=== PATIENT | female | born 1960 | race Caucasian/White ===

== ENCOUNTER 2017-02-21 15:10 | Emergency (ER) | payer OTHER, SELFPAY | END 2017-02-21 16:25 | disposition left against medical advice (07) | LOC: UTC 15:14 | PROVIDERS: Emergency Provider Nurse Practitioner Family; Family Provider Emergency Medicine; PCP Nurse Practitioner Family | DX: Z53.29 Procedure and treatment not carried out because of patient's decision for other reasons (principal) ==

== ENCOUNTER → 2017-03-29 14:37 | Outpatient (CLI) | payer OTHER, SELFPAY ==
[2017-03-29 16:19] LABS: Free T4 (Free Thyroxine) 1.05 ng/dl (0.76-1.46); Thyroid Stimulating Hormone 5.28 uIU/ml (0.358-3.740)
[2017-04-01 11:01] LABS: Triiodothyronine (T3) Free 2.7 pg/mL (2.0-4.4)
== END ==
PROVIDERS: PCP Nurse Practitioner Family; Visit Provider Internal Medicine Endocrinology, Diabetes & Metabolism
DX: E05.00 Thyrotoxicosis with diffuse goiter without thyrotoxic crisis or storm (principal); E03.8 Other specified hypothyroidism; R94.6 Abnormal results of thyroid function studies
CPT/HCPCS: 36415; 84439; 84443; 84481

== ENCOUNTER → 2017-05-11 08:42 | Outpatient (CLI) | payer OTHER, SELFPAY ==
--- NOTE | 2017-05-11 08:48 | XR_ITS ---
XR DEXA axial skeleton COMPARISON: None HISTORY: Patient is postmenopausal, history of fracture as an adult TECHNIQUE: DEXA scanning lumbar spine and bilateral hips FINDINGS: The areas BMD lumbar spine L1-L4 is 0.978 g centimeters square with T score of -1.7. The total BMD left hip is 0.933 g centimeters square with a T score -0.6. The left femoral neck is 0.849 g centimeters square with a T score -1.4. There are similar values right hip. IMPRESSION: T score is in the osteopenia range lumbar spine and bilateral hips, consider follow-up study in 2 years
--- NOTE | 2017-05-11 08:48 | MM_ITS ---
MM Dig screening mamm BI w/CAD CAD Screening COMPARISON: Digital mammograms 02/24/2016 and 10/11/2014 INDICATION: There is a history of breast cancer patient's paternal grandmother and mother. TECHNIQUE: Standard CC and MLO images were obtained. R2 CAD reviewed. FINDINGS: The breasts are composed primarily of fat with minimal scattered fibroglandular densities in each breast. There is no suspicious lesion and there are no suspicious microcalcifications. There are several small nodes in both axilla. IMPRESSION: Stable low-density breast with no suspicious lesion seen recommend yearly follow-up BI-RADS Category: 1 Negative RECOMMENDED FOLLOW-UP: 1YR - 1 YEAR FOLLOW-UP (A letter has been sent to the patient regarding results of the study.)
== END ==
PROVIDERS: Family Provider Emergency Medicine; PCP Nurse Practitioner Family; Visit Provider Nurse Practitioner Family
DX: Z12.31 Encounter for screening mammogram for malignant neoplasm of breast (principal); Z13.820 Encounter for screening for osteoporosis
CPT/HCPCS: 77067; 77080

== ENCOUNTER → 2017-05-19 14:04 | Outpatient (CLI) | payer OTHER, SELFPAY ==
--- NOTE | 2017-05-19 14:10 | XR_ITS ---
XR chest 2V HISTORY: Cough and congestion ITS.REASON: BRONCHITIS ORDERING PHYSICIAN: Nathalie Soriano PATIENT AGE: 57 years COMPARISON: 01/18/2017 FINDINGS: The cardiomediastinal silhouette and pulmonary vascularity are within normal limits. There is an area of consolidation involving the left upper lobe laterally consistent with pneumonia. Infiltrate is also present in the lingula and right lung base. Chronic changes are noted right pericardial region. No obvious effusion. No acute bony anomalies. IMPRESSION: Bilateral pneumonia. Recommend follow until clear
== END ==
PROVIDERS: PCP Nurse Practitioner Family; Visit Provider Nurse Practitioner Family
DX: J40 Bronchitis, not specified as acute or chronic (principal)
CPT/HCPCS: 71046

== ENCOUNTER → 2017-09-15 11:46 | Outpatient (REF) | payer BC, SELFPAY ==
[2017-09-15 14:12] LABS: Amphetamine/Metha Screen,Urine Negative ng/mL (<1000); Barbiturates Screen,Urine Negative ng/mL (<200); Benzodiazepines Screen,Urine Negative ng/mL (<200); Cannabinoid Screen,Urine Negative ng/mL (<50); Cocaine Screen,Urine Negative ng/mL (<300); Methadone Screen,Urine Negative ng/mL (<300); Opiate Screen,Urine Negative ng/mL (<300); Phencyclidine Screen,Urine Negative ng/mL (<25)
== END ==
LOC: LAB 11:46
PROVIDERS: Visit Provider Nurse Practitioner Family
DX: Z79.899 Other long term (current) drug therapy (principal)
CPT/HCPCS: 80305

== ENCOUNTER → 2017-12-02 17:07 | Outpatient (REF) | payer BC, SELFPAY ==
[2017-12-02 17:36] LABS: Basophils # 0.1 K/mm3 (0-0.2); Basophils % 0.8 % (0.1-2.0); Eosinophils # 0.2 K/mm3 (0.0-0.4); Eosinophils % 2.8 % (0.1-12.0); Hematocrit 44.1 % (37.0-47.0); Hemoglobin 14.1 g/dL (12.2-16.2); Lymphocytes # 2.5 K/mm3 (0.7-4.5); Lymphocytes % 38.6 K/mm3 (10-50); Mean Corpuscular Hemoglobin 30.4 pg (27.0-31.2); Mean Corpuscular Volume 94.9 fl (81-99); Mean Platelet Volume 8.7 fl (7.4-10.4); Monocytes # 0.3 K/mm3 (0.1-1.0); Monocytes % 4.1 % (1.7-9.3); Neutrophils # 3.5 K/mm3 (1.8-7.8); Neutrophils % 53.7 % (37.0-80.0); Platelet Count 303 K/mm3 (142-424); Red Blood Count 4.65 M/mm3 (4.20-5.40); Red Cell Distribution Width 12.5 % (11.5-17.5); White Blood Count 6.5 K/mm3 (4.8-10.8)
[2017-12-02 18:25] LABS: Alanine Aminotransferase 36 U/L (12-78); Albumin Level 3.9 gm/dL (3.4-5.0); Albumin/Globulin Ratio 1.1 (1.1-1.8); Alkaline Phosphatase 95 U/L (46-116); Anion Gap 12.9 mEq/L (5-15); Aspartate Amino Transferase 14 U/L (15-37); Bilirubin,Total 0.3 mg/dL (0.2-1.0); Blood Urea Nitrogen 19 mg/dL (7-18); Calcium 9.2 mg/dL (8.5-10.1); Carbon Dioxide 29 mmol/L (21.0-32.0); Chloride 102 mmol/L (98-107); Cholesterol 210 mg/dL (140-200); Creatinine,Serum 0.69 mg/dL (0.55-1.02); Estimated Glomerular Filt Rate 88 ml/min (>60); GFR (African American) 106 ML/MIN (>60); Globulin 3.5 gm/dl (1.3-3.2); Glucose 154 mg/dL (74-106); HDL Cholesterol 53 mg/dL (29-89); LDL Cholesterol 132 mg/dL (0-130); Potassium 4.9 mmoL/L (3.5-5.1); Sodium 139 mmol/L (136-145); T4 (Thyroxine) 12.1 ug/dl (4.7-13.3); Thyroid Stimulating Hormone 0.39 uIU/ml (0.358-3.740); Total Protein,Serum 7.4 gm/dL (6.4-8.2); Triglycerides 126 mg/dL (30-200); VLDL Cholesterol 25 mg/dL (0-40)
[2017-12-02 19:16] LABS: Hemoglobin A1C 7.4 % (0.0-7.0)
[2017-12-05 09:27] LABS: Vitamin D 25 Hydroxy 38.8 ng/mL (30.0-100.0)
== END ==
LOC: LAB 17:07
PROVIDERS: PCP Nurse Practitioner Family; Visit Provider Nurse Practitioner Family
DX: R73.9 Hyperglycemia, unspecified (principal); Z13.21 Encounter for screening for nutritional disorder; Z13.220 Encounter for screening for lipoid disorders
CPT/HCPCS: 80053; 80061; 82652; 83036; 84436; 84443; 85025

== ENCOUNTER → 2018-01-04 08:59 | Outpatient (CLI) | payer BC, SELFPAY | PROVIDERS: PCP Emergency Medicine; Visit Provider Nurse Practitioner Family | DX: Z71.3 Dietary counseling and surveillance (principal) | CPT/HCPCS: 97802 ==

== ENCOUNTER → 2018-01-11 13:34 | Outpatient (CLI) | payer BC, SELFPAY | PROVIDERS: Visit Provider Nurse Practitioner Family | DX: J02.9 Acute pharyngitis, unspecified (principal) ==

== ENCOUNTER → 2018-06-20 16:09 | Outpatient (CLI) | payer BC, SELFPAY ==
--- NOTE | 2018-06-20 16:16 | XR_ITS ---
XR foot wt bearing LT 3V HISTORY: ITS.REASON: pain ORDERING PHYSICIAN: Janette Harrell DPM PATIENT AGE: 58 years COMPARISON: None FINDINGS: No fracture or dislocation. No lytic or blastic change. There is normal mineralization.. The joint spaces are well-preserved. No significant degenerative/arthritic changes. No erosive changes evident. There is mild pes planus IMPRESSION: Mild pes planus otherwise negative
--- NOTE | 2018-06-20 16:16 | XR_ITS ---
XR foot wt bearing RT 3V HISTORY: ITS.REASON: pain ORDERING PHYSICIAN: Janette Harrell DPM PATIENT AGE: 58 years COMPARISON: None FINDINGS: No fracture or dislocation. No lytic or blastic change. There is normal mineralization.. The joint spaces are well-preserved. No significant degenerative/arthritic changes. No erosive changes evident. There is mild pes planus IMPRESSION: Mild pes planus otherwise negative
[2018-06-20 16:59] LABS: Hemoglobin A1C 7.2 % (0.0-7.0)
[2018-06-20 17:11] LABS: Basophils # 0.1 K/mm3 (0-0.2); Basophils % 0.9 % (0.1-2.0); Eosinophils # 0.2 K/mm3 (0.0-0.4); Eosinophils % 3.1 % (0.1-12.0); Hematocrit 40.6 % (37.0-47.0); Hemoglobin 13.5 g/dL (12.2-16.2); Lymphocytes # 2.8 K/mm3 (0.7-4.5); Lymphocytes % 36.2 % (10-50); Mean Corpuscular HGB Conc 33.2 g/dL (31.8-35.4); Mean Corpuscular Hemoglobin 31.2 pg (27.0-31.2); Mean Platelet Volume 8.1 fl (7.4-10.4); Monocytes # 0.3 K/mm3 (0.1-1.0); Monocytes % 3.6 % (1.7-9.3); Neutrophils # 4.3 K/mm3 (1.8-7.8); Neutrophils % 56.3 % (37.0-80.0); Platelet Count 289 K/mm3 (142-424); Red Blood Count 4.32 M/mm3 (4.20-5.40); Red Cell Distribution Width 12.7 % (11.5-17.5); White Blood Count 7.6 K/mm3 (4.8-10.8)
[2018-06-20 18:52] LABS: Alanine Aminotransferase 27 U/L (12-78); Albumin Level 3.7 gm/dL (3.4-5.0); Albumin/Globulin Ratio 0.9 (1.1-1.8); Alkaline Phosphatase 87 U/L (46-116); Anion Gap 12.2 mEq/L (5-15); Aspartate Amino Transferase 11 U/L (15-37); Bilirubin,Total 0.2 mg/dL (0.2-1.0); Blood Urea Nitrogen 21 mg/dL (7-18); Calcium 9.2 mg/dL (8.5-10.1); Carbon Dioxide 29 mmol/L (21.0-32.0); Chloride 105 mmol/L (98-107); Estimated Glomerular Filt Rate 86 ml/min (>60); GFR (African American) 104 ML/MIN (>60); Globulin 3.9 gm/dl (1.3-3.2); Glucose 144 mg/dL (74-106); Potassium 4.2 mmoL/L (3.5-5.1); Sodium 142 mmol/L (136-145); Total Protein,Serum 7.6 gm/dL (6.4-8.2)
== END ==
PROVIDERS: Visit Provider Podiatrist
DX: E11.9 Type 2 diabetes mellitus without complications (principal); M79.673 Pain in unspecified foot
CPT/HCPCS: 36415; 73630; 80053; 83036; 85025

== ENCOUNTER → 2018-10-07 15:41 | Outpatient (CLI) | payer BC, SELFPAY ==
--- NOTE | 2018-10-07 15:47 | MM_ITS ---
PROCEDURE: MM DIG SCREENING MAMM BI W/CAD CLINICAL INDICATION: screening There is a history of breast cancer in patient's mother and sister and maternal grandmother all after menopause. COMPARISON: [facility] DIG MAMM-SCREEN AJ from 10/11/2014 [facility] DIG MAMM-SCREEN AJ W/CAD from 02/24/2016 [facility] MM Dig screening mamm BI w/CAD from 05/11/2017 TECHNIQUE: Standard CC and MLO images were obtained. R2 CAD reviewed. FINDINGS: The breasts are composed primarily of fat with minimal scattered fibroglandular densities in each breast. There are couple of scattered benign appearing microcalcifications in each breast. There is no suspicious lesion in either breast and no suspicious microcalcifications. There is stable small nodes in both axilla. IMPRESSION: Fatty breast parenchyma with no suspicious lesions seen BI-RAD Category: 2 Benign Finding(s) FOLLOW-UP: 1YR 1 Year Follow-up (A letter has been sent to the patient regarding results of the study.) Dictated by: Dr. Sekou Page MD 10/11/2018 16:[address] Seoku Page MD in [place] 10/11/2018 16:17
== END ==
PROVIDERS: PCP Emergency Medicine; Visit Provider Physician Assistant
DX: Z12.31 Encounter for screening mammogram for malignant neoplasm of breast (principal)
CPT/HCPCS: 77067

== ENCOUNTER → 2019-05-05 12:53 | Outpatient (CLI) | payer BC, SELFPAY ==
--- NOTE | 2019-05-05 | MM_ITS ---
PROCEDURE: MM DIG MAMM DX UNILAT RT CAD Digital Breast Tomosynthesis Included CLINICAL INDICATION: New onset right breast pain COMPARISON: [facility] DIG MAMM-SCREEN AJ W/CAD from 02/24/2016 [facility] MM Dig screening mamm BI w/CAD from 05/11/2017 MM DIG SCREENING MAMM BI W/CAD from 10/07/2018 US BREAST RT COMPLETE from 05/05/2019 TECHNIQUE: Standard CC and MLO images and 3D Tomosynthesis was obtained. R2 CAD reviewed. FINDINGS: There is mostly fatty replaced fibroglandular tissue. No malignant appearing mass or malignant-appearing microcalcification is evident. There is a 5 mm well-circumscribed nodule within the upper inner aspect of the right breast. This has central decreased density with peripheral partially calcified rim consistent with an oil cyst Right breast ultrasound: There is a 4 mm hypoechoic nodule in the 1 o'clock region of the right breast with some posterior acoustical shadowing and may be related to the or oil cyst noted on mammogram. No suspicious nodules evident IMPRESSION: BI-RAD Category: 2 Benign Finding(s) FOLLOW-UP: 1YR 1 Year Follow-up (A letter has been sent to the patient regarding results of the study.) Dictated by: Vinayak Valenzuela MD 05/05/2019 15:54 Electronically signed by Vinayak Valenzuela MD in [place] 05/05/2019 15:54
== END ==
PROVIDERS: PCP Nurse Practitioner Family; Visit Provider Obstetrics & Gynecology
DX: N64.4 Mastodynia (principal)
CPT/HCPCS: 76641; 77061; 77065; G0279

== ENCOUNTER → 2019-07-26 17:05 | Outpatient (CLI) | payer BC, SELFPAY ==
[2019-07-26 18:02] LABS: Basophils # 0.1 K/mm3 (0-0.2); Basophils % 0.8 % (0.1-2.0); Eosinophils # 0.2 K/mm3 (0.0-0.4); Eosinophils % 2.9 % (0.1-12.0); Hematocrit 41.7 % (37.0-47.0); Hemoglobin 14.1 g/dL (12.2-16.2); Lymphocytes % 38.3 % (10-50); Mean Corpuscular HGB Conc 33.8 g/dL (31.8-35.4); Mean Corpuscular Hemoglobin 32.7 pg (27.0-31.2); Mean Corpuscular Volume 96.6 fl (81-99); Mean Platelet Volume 9.2 fl (7.4-10.4); Monocytes # 0.3 K/mm3 (0.1-1.0); Monocytes % 3.6 % (1.7-9.3); Neutrophils # 4.2 K/mm3 (1.8-7.8); Neutrophils % 54.4 % (37.0-80.0); Platelet Count 266 K/mm3 (142-424); Red Blood Count 4.31 M/mm3 (4.20-5.40); Red Cell Distribution Width 12.9 % (11.5-17.5); White Blood Count 7.8 K/mm3 (4.8-10.8)
[2019-07-26 18:21] LABS: Alanine Aminotransferase 26 U/L (12-78); Albumin Level 4.6 g/dl (3.5-5.0); Albumin/Globulin Ratio 1.5 (1.1-1.8); Alkaline Phosphatase 94 U/L (38-126); Anion Gap 13.4 mEq/L (5-15); Aspartate Amino Transferase 35 U/L (14-36); Bilirubin,Total 0.3 mg/dl (0.2-1.3); Blood Urea Nitrogen 29 mg/dl (7-17); Calcium 9.8 mg/dl (8.4-10.2); Carbon Dioxide 29 mmol/L (22.0-30.0); Chloride 101 mmol/L (98-107); Chol/HDL Ratio 3.3 (1-3.5); Cholesterol 279 mg/dl (140-200); Estimated Glomerular Filt Rate 86 ml/min (>60); GFR (African American) 104 ML/MIN (>60); Globulin 3.1 g/dL (1.3-3.2); Glucose 172 mg/dl (74-100); HDL Cholesterol 84 mg/dl (40-60); Potassium 4.4 mmoL/L (3.5-5.1); Sodium 139 mmol/L (136-145); Total Protein,Serum 7.7 g/dl (6.3-8.2); Triglycerides 157 mg/dl (30-150); VLDL Cholesterol 31 mg/dL (0-40)
[2019-07-26 18:32] LABS: Direct LDL Cholesterol 178.45 mg/dL (100-129)
[2019-07-26 18:36] LABS: Microalbumin/Creatinine Ratio 13.2
[2019-07-26 19:15] LABS: Creatinine,Urine Random 115 mg/dL (Not Estab.)
[2019-07-26 19:57] LABS: Hemoglobin A1C 8.1 % (4.0-6.0)
== END ==
PROVIDERS: Visit Provider Nurse Practitioner Family
DX: E11.9 Type 2 diabetes mellitus without complications (principal)
CPT/HCPCS: 80053; 80061; 82043; 82570; 83036; 84436; 84443; 85025

== ENCOUNTER → 2019-10-12 10:41 | Outpatient (CLI) | payer BC, SELFPAY ==
--- NOTE | 2019-10-12 | MM_ITS ---
PROCEDURE: MM DIG MAMM DX UNILAT RT CAD Digital Breast Tomosynthesis Included CLINICAL INDICATION: Abnormality in the right breast 6 o'clock near the nipple reddened and painful COMPARISON: MG MM DIG MAMM DX UNILAT RT CAD from 05/05/2019 US US BREAST RT COMPLETE from 05/05/2019 US US BREAST RT COMPLETE from 10/12/2019 TECHNIQUE: Right mammogram performed with tomography and right breast ultrasound FINDINGS: There is average fibroglandular tissue. No malignant appearing mass or malignant-appearing microcalcification is evident. There is a vague area of increased density in the lower aspect of the right breast slightly medially corresponding to the palpable abnormality. Right breast ultrasound: There is a 10 x 4 mm nodule in the subcutaneous tissues at 6 o'clock in the right breast near the nipple corresponding to the palpable abnormality. This is decreased echogenicity centrally with I so echogenicity peripherally appearing to contain a small cortex or capsule approximately 1 mm in thickness. There is some increased blood flow to this area. In addition, there is a 3 mm hypoechoic nodule 1 o'clock with some posterior acoustical shadowing possibly due to an oil cyst not significantly changed. IMPRESSION: Palpable nodule corresponds to a complex hypoechoic nodule on ultrasound in 6 o'clock region of the right breast within the subcutaneous tissues. This is probably benign and may represent a complex sebaceous cyst or a small abscess. This could be aspirated with sonographic guidance if clinically desired. Overall not suspicious for malignancy. BI-RAD Category: 3 Probably Benign Finding Short Term Follow-up FOLLOW-UP: Clinical follow-up suggested. Nodule could be aspirated with sonographic guidance if clinically desired. (A letter has been sent to the patient regarding results of the study.) Dictated by: Vinayak Valenzuela MD 10/20/2019 15:53 Vinayak Valenzuela MD in [place] 10/20/2019 15:53
--- NOTE | 2019-10-12 10:42 | US_ITS ---
This report is currently processing and HAS NOT BEEN OFFICIALLY SIGNED BY THE PHYSICIAN - ESTIMATED TIME OF APPROVAL IS 10/20/2019 15:56. PROCEDURE: MM DIG MAMM DX UNILAT RT CAD Digital Breast Tomosynthesis Included CLINICAL INDICATION: Abnormality in the right breast 6 o'clock near the nipple reddened and painful COMPARISON: MG MM DIG MAMM DX UNILAT RT CAD from 05/05/2019 US US BREAST RT COMPLETE from 05/05/2019 US US BREAST RT COMPLETE from 10/12/2019 TECHNIQUE: Right mammogram performed with tomography and right breast ultrasound FINDINGS: There is average fibroglandular tissue. No malignant appearing mass or malignant-appearing microcalcification is evident. There is a vague area of increased density in the lower aspect of the right breast slightly medially corresponding to the palpable abnormality. Right breast ultrasound: There is a 10 x 4 mm nodule in the subcutaneous tissues at 6 o'clock in the right breast near the nipple corresponding to the palpable abnormality. This is decreased echogenicity centrally with I so echogenicity peripherally appearing to contain a small cortex or capsule approximately 1 mm in thickness. There is some increased blood flow to this area. In addition, there is a 3 mm hypoechoic nodule 1 o'clock with some posterior acoustical shadowing possibly due to an oil cyst not significantly changed. IMPRESSION: Palpable nodule corresponds to a complex hypoechoic nodule on ultrasound in 6 o'clock region of the right breast within the subcutaneous tissues. This is probably benign and may represent a complex sebaceous cyst or a small abscess. This could be aspirated with sonographic guidance if clinically desired. Overall not suspicious for malignancy. BI-RAD Category: 3 Probably Benign Finding Short Term Follow-up FOLLOW-UP: Clinical follow-up suggested. Nodule could be aspirated with sonographic guidance if clinically desired. (A letter has been sent to the patient regarding results of the study.) Dictated by: Vinayak Valenzuela MD 10/20/2019 15:53 in [place]
== END ==
PROVIDERS: PCP Nurse Practitioner Family; Visit Provider Nurse Practitioner Family
DX: N63.15 Unspecified lump in the right breast, overlapping quadrants (principal)
CPT/HCPCS: 76641; 77061; 77065; G0279

== ENCOUNTER → 2019-11-02 12:33 | Outpatient (CLI) | payer BC, SELFPAY ==
--- NOTE | 2019-11-02 12:34 | US_ITS ---
PROCEDURE: US FNA BREAST CLINICAL INDICATION: Subcutaneous nodule of the right breast at 6 o'clock the COMPARISON: US US BREAST RT COMPLETE from 10/12/2019 FINDINGS: Following obtaining informed consent and time-out procedure with sonographic guidance, a 21 gauge needle is inserted into the subcutaneous nodule at 6 o'clock. Specimen is sent for cytology as well as culture and sensitivity. No significant fluid aspirate was obtained. Cytology: Atypical squamous cells. Culture and sensitivity results not available at the time of this reading. IMPRESSION: Uneventful ultrasound-guided FNA of the right breast nodule demonstrating atypical squamous cells. Dictated by: Vinayak Valenzuela MD 11/06/2019 10:37 Vinayak Valenzuela MD in [place] 11/06/2019 10:37
== END ==
PROVIDERS: PCP Nurse Practitioner Family; Visit Provider Nurse Practitioner Family
DX: R92.8 Other abnormal and inconclusive findings on diagnostic imaging of breast (principal)
CPT/HCPCS: 19083; 76942; 87070; 87205

== ENCOUNTER → 2019-12-06 11:25 | Outpatient (CLI) | payer BC, SELFPAY ==
--- NOTE | 2019-12-06 11:42 | ECG_ITS ---
APPROVED REPORT Exam: Resting ECG HR:72 bpm ECG Measurements Heart Rate 72 AXES IN 138 P 36 QRSd 84 QRS -6 QT 416 T -13 QTc 455 Conclusion Normal sinus rhythm Nonspecific T wave abnormality Abnormal ECG Electronically signed by : Shakir Enriquez, 12/07/2019 05:35:08
[2019-12-06 12:25] LABS: Basophils # 0.1 K/mm3 (0-0.2); Eosinophils # 0.2 K/mm3 (0.0-0.4); Eosinophils % 3.1 % (0.1-12.0); Hematocrit 42.1 % (37.0-47.0); Hemoglobin 14.6 g/dL (12.2-16.2); Lymphocytes # 2.1 K/mm3 (0.7-4.5); Lymphocytes % 30.9 % (10-50); Mean Corpuscular HGB Conc 34.8 g/dL (31.8-35.4); Mean Corpuscular Hemoglobin 32.2 pg (27.0-31.2); Mean Corpuscular Volume 92.7 fl (81-99); Mean Platelet Volume 8.9 fl (7.4-10.4); Monocytes # 0.2 K/mm3 (0.1-1.0); Monocytes % 3.4 % (1.7-9.3); Neutrophils # 4.3 K/mm3 (1.8-7.8); Neutrophils % 61.7 % (37.0-80.0); Platelet Count 285 K/mm3 (142-424); Red Blood Count 4.54 M/mm3 (4.20-5.40); Red Cell Distribution Width 13.1 % (11.5-17.5)
[2019-12-06 12:55] LABS: Chloride 106 mmol/L (98-107); Potassium 4.6 mmoL/L (3.5-5.1); Sodium 139 mmol/L (136-145)
[2019-12-06 12:58] LABS: Anion Gap 12.6 mEq/L (5-15); Blood Urea Nitrogen 20 mg/dl (7-17); Calcium 9.6 mg/dl (8.4-10.2); Carbon Dioxide 25 mmol/L (22.0-30.0); Estimated Glomerular Filt Rate 86 ml/min (>60); GFR (African American) 104 ML/MIN (>60); Glucose 197 mg/dl (74-100)
[2019-12-06 13:54] LABS: Coronavirus 19 IgG Antibody Negative (Negative); Coronavirus 19 IgM Antibody Negative (Negative)
== END ==
PROVIDERS: Visit Provider Surgery
DX: Z01.818 Encounter for other preprocedural examination (principal); N63.10 Unspecified lump in the right breast, unspecified quadrant
CPT/HCPCS: 36415; 80048; 85025; 86328; 93005

== ENCOUNTER 2019-12-08 06:07 | Day surgery (SDC) | payer BC, SELFPAY ==
[2019-12-07 09:12] VITALS: BMI 42.7
[2019-12-08] VITALS (11 sets, daily range): BP systolic 118–139; BP diastolic 63–81; PULSE 71–80; RESP 13–20; TEMP 36.1–36.4; O2SAT 92–97
[2019-12-08 06:48] LABS: POC Glucose,Bedside 234 (70-110)
--- NOTE | 2019-12-08 07:43 | P.OP_ITS ---
Date of procedure: 12/08/19 Pre-op Diagnosis:: Right breast mass (likely inflamed subcutaneous cyst) Post-op Diagnosis:: Same Procedure performed:: Excision of right breast mass Surgeon:: Shaun Jesus MD MARINE ENGINEERING CONSULTANT:: Destin Sylvester Anesthesia: LMA Estimated blood loss (mL): 5 Operative findings:: Inflamed subcutaneous lesion just below the areolar margin in the 6 o'clock position Lesion excised in toto and passed off for pathologic evaluation Operative note:: After informed consent was obtained the patient was taken to the operating room and placed in the supine position. General anesthesia with laryngeal mask airway was achieved. Her right breast was prepped and draped in a sterile fashion. After infiltration with local anesthetic a curvilinear incision was made along the inferior right areolar margin. An incision just below the lesion was then completed. The lesion was excised in toto sharply with scalpel and passed off for pathologic evaluation. Electrocautery was utilized to achieve hemostasis. The deep subcutaneous tissue was reapproximated with interrupted 4- 0 Monocryl. Skin was then closed with running 4-0 Monocryl in a subcuticular manner. Dressings were applied and the patient was transferred to recovery in stable condition after removal of her laryngeal mask airway. Condition: stable Disposition: PACU Specimens:: Right breast mass Complications:: No immediate
--- NOTE | 2019-12-08 07:50 | P.PN_ITS ---
[facility] Anesthesia Checklist - Patient Identification Patient Identification: Arm Band - Structural Data Admitted From: Home Planned Operative Procedure/s: Excision Right Breast Mass Consent for Planned Operative Procedure(s) Verified: Yes Verified Documents: Surgical Consent, History and Physical - NPO Status Verified Time NPO: 00:00 - Additional verifications Anesthesia Reactions: No Hx Blood Transfusions: No Blood Transfusion Reaction: No - Airway Assessment C-Spine Mobility Assessed: Yes (mp2) TMJ Mobility Assessed: Yes Dentition: Good Dentition - Neurological Assessment Level of Consciousness: Awake, Alert - Anesthesia Plan Anesthesia Risk discussed: Yes Anesthesia Plan: Verified ASA Class: III Anesthesia Type: General [facility] History I have reviewed the patient's past medical history: Yes Medical History: Reports:: Asthma, Diabetes Mellitus Type 2, Hyperlipidemia, Hypertension Denies:: Cancer, Diabetes Mellitus Type 1, Internal Pacemaker, MRSA, Seizures *Have you ever received a pneumonia vaccine?: Yes *Have you received a flu vaccine this season?: Yes Other Medical History: Reports: Thyroid Disease. Denies: Blood Transfusion Reaction Anesthesia experience/problems:: nac Laterality Cases: Right: Breast Biopsy Other Surgeries: Yes: Tubal Ligation. No: Pacemaker Amputation: No Fractures: No - *Social History Last grade of school completed: High school graduate Smoking Status: Never smoker Tobacco Type: cigarettes Alcohol Intake: never Substance Use Type: denies use *Occupational Status:: employed Housing: house Household Members: significant other, family *Travel in the last 8 weeks: None Family Hx:: Hypertension, Diabetes, Coronary Artery Disease, Cancer
--- NOTE | 2019-12-08 07:51 | P.PN_ITS ---
[facility] [place] Anesthesia Record Part I Intake, IV Amount: 1,000 Estimated blood loss (mL): 5 Urine output (mL): 0 Blood Pressure: 136/74 SaO2: 92 Pulse Rate: 76 Respiratory Rate: 16 Temperature: 97 F Patient is:: Drowsy, Stable Stable to PACU at:: 07:45
[2019-12-08 08:00] LABS: POC Glucose,Bedside 135 (70-110)
--- NOTE | 2019-12-08 13:24 | HMH.ANESII ---
[facility] Anesthesia Record Part II Discharge Time: 08:23 Destination: Surgical Day Care (OP Surgery) PACU nurse assessment reviewed?: Yes Patient Condition:: Good Anesthesia Complications:: None Swallowing reflex intact?: Yes Cyanosis?: No Blood Pressure: 128/72 Pulse Rate: 75 Temperature: 97.6 F Mental Status: Alert & Oriented Pain level:: 0 Nausea and/or vomitting:: None Intake, IV Amount: 0
== END 2019-12-08 08:55 | disposition home or self-care (01) ==
LOC: OR 06:09
PROVIDERS: PCP Nurse Practitioner Family; Visit Provider Surgery
PROC: (CPT 19120; principal; 2019-12-08 07:30)
DX: N60.81 Other benign mammary dysplasias of right breast (principal); J45.909 Unspecified asthma, uncomplicated; E11.9 Type 2 diabetes mellitus without complications; I10 Essential (primary) hypertension; E78.5 Hyperlipidemia, unspecified; Z82.49 Family history of ischemic heart disease and other diseases of the circulatory system; Z83.3 Family history of diabetes mellitus; Z84.89 Family history of other specified conditions; Z80.9 Family history of malignant neoplasm, unspecified
CPT/HCPCS: 19120; 82962; 96374; J2405

== ENCOUNTER → 2020-03-01 14:15 | Outpatient (CLI) | payer BC, SELFPAY ==
[2020-03-01 15:06] LABS: Creatinine,Urine Random 154 mg/dL (Not Estab.)
[2020-03-01 15:08] LABS: Microalbumin/Creatinine Ratio 13.6
[2020-03-01 15:13] LABS: Basophils # 0.1 K/mm3 (0-0.2); Basophils % 1.1 % (0.1-2.0); Eosinophils # 0.2 K/mm3 (0.0-0.4); Eosinophils % 2.2 % (0.1-12.0); Hematocrit 46.1 % (37.0-47.0); Hemoglobin 15.1 g/dL (12.2-16.2); Lymphocytes # 2.4 K/mm3 (0.7-4.5); Lymphocytes % 33.8 % (10-50); Mean Corpuscular HGB Conc 32.8 g/dL (31.8-35.4); Mean Corpuscular Hemoglobin 31.5 pg (27.0-31.2); Mean Corpuscular Volume 95.9 fl (81-99); Mean Platelet Volume 9.5 fl (7.4-10.4); Monocytes # 0.2 K/mm3 (0.1-1.0); Monocytes % 3.3 % (1.7-9.3); Neutrophils # 4.3 K/mm3 (1.8-7.8); Neutrophils % 59.6 % (37.0-80.0); Platelet Count 277 K/mm3 (142-424); Red Blood Count 4.81 M/mm3 (4.20-5.40); Red Cell Distribution Width 13.4 % (11.5-17.5); White Blood Count 7.2 K/mm3 (4.8-10.8)
[2020-03-01 15:22] LABS: Alanine Aminotransferase 33 U/L (12-78); Albumin Level 4.4 g/dl (3.5-5.0); Albumin/Globulin Ratio 1.2 (1.1-1.8); Alkaline Phosphatase 84 U/L (38-126); Anion Gap 9.6 mEq/L (5-15); Aspartate Amino Transferase 30 U/L (14-36); Bilirubin,Total 0.4 mg/dl (0.2-1.3); Blood Urea Nitrogen 17 mg/dl (7-17); Carbon Dioxide 31 mmol/L (22.0-30.0); Chloride 101 mmol/L (98-107); Chol/HDL Ratio 4.9 (1-3.5); Cholesterol 297 mg/dl (140-200); Estimated Glomerular Filt Rate 102 ml/min (>60); GFR (African American) 124 ML/MIN (>60); Globulin 3.6 g/dL (1.3-3.2); Glucose 210 mg/dl (74-100); HDL Cholesterol 61 mg/dl (40-60); Potassium 4.6 mmoL/L (3.5-5.1); Sodium 137 mmol/L (136-145); Triglycerides 209 mg/dl (30-150); VLDL Cholesterol 42 mg/dL (0-40)
[2020-03-01 15:33] LABS: Direct LDL Cholesterol 221.16 mg/dL (100-129)
[2020-03-01 15:39] LABS: 25-OH Vitamin D, Total 18.2 ng/mL (30-100)
[2020-03-01 15:52] LABS: Hemoglobin A1C 8.7 % (4.0-6.0)
== END ==
PROVIDERS: Visit Provider Nurse Practitioner Family
DX: E11.9 Type 2 diabetes mellitus without complications (principal); G62.9 Polyneuropathy, unspecified; R53.83 Other fatigue; E55.9 Vitamin D deficiency, unspecified; Z79.84 Long term (current) use of oral hypoglycemic drugs; R39.15 Urgency of urination
CPT/HCPCS: 80053; 80061; 82043; 82306; 82570; 83036; 84436; 84443; 85025; 87086

== ENCOUNTER → 2020-03-20 14:30 | Outpatient (CLI) | payer BC, SELFPAY | PROVIDERS: PCP Nurse Practitioner Family; Visit Provider Nurse Practitioner Family | DX: Z20.822 Contact with and (suspected) exposure to COVID-19 (principal) | CPT/HCPCS: U0003 ==

== ENCOUNTER → 2020-05-30 11:40 | Outpatient (CLI) | payer BC, SELFPAY ==
[2020-05-30 13:27] LABS: Coronavirus 19 IgG Antibody Negative (Negative); Coronavirus 19 IgM Antibody Negative (Negative)
== END ==
PROVIDERS: Visit Provider Internal Medicine Gastroenterology
DX: Z01.812 Encounter for preprocedural laboratory examination (principal); Z20.822 Contact with and (suspected) exposure to COVID-19; Z12.11 Encounter for screening for malignant neoplasm of colon
CPT/HCPCS: 36415; 86328

== ENCOUNTER 2020-05-31 09:59 | Day surgery (SDC) | payer BC, SELFPAY ==
[2020-05-23 13:45] VITALS: BMI 42.7
[2020-05-31 10:40] VITALS: BP 146/105; PULSE 67; RESP 18; TEMP 36.3; O2SAT 96
[2020-05-31 10:53] LABS: POC Glucose,Bedside 145 (70-110)
--- NOTE | 2020-05-31 11:06 | HMH.ANESCL ---
[facility] Anesthesia Checklist - Patient Identification Patient Identification: Arm Band - Structural Data Admitted From: Home Planned Operative Procedure/s: Colonoscopy Consent for Planned Operative Procedure(s) Verified: Yes - NPO Status Verified Time NPO: 00:00 - Additional verifications Anesthesia Reactions: No Hx Blood Transfusions: No Blood Transfusion Reaction: No - Airway Assessment Dentition: Good Dentition - Neurological Assessment Level of Consciousness: Awake, Alert Hx Seizures: No Numbness or tingling in extremities: No - Anesthesia Plan Anesthesia Risk discussed: Yes Anesthesia Plan: Verified ASA Class: III Anesthesia Type: MAC [facility] History I have reviewed the patient's past medical history: Yes Medical History: Reports:: Asthma, Chronic Obstructive Pulmonary Disease (COPD), Diabetes Mellitus Type 2 (graves), Hyperlipidemia, Hypertension Denies:: Cancer, Diabetes Mellitus Type 1, Internal Pacemaker, MRSA, Seizures *Have you ever received a pneumonia vaccine?: Yes *Have you received a flu vaccine this season?: Yes Other Medical History: Reports: Thyroid Disease. Denies: Blood Transfusion Reaction Anesthesia experience/problems:: None Laterality Cases: Right: Breast Biopsy Other Surgeries: Yes: Colonoscopy, Tubal Ligation, Other. No: Pacemaker Amputation: No Fractures: No - *Social History Last grade of school completed: High school graduate Smoking Status: Never smoker Tobacco Type: cigarettes Alcohol Intake: never Substance Use Type: denies use *Occupational Status:: employed Housing: house Household Members: spouse *Travel in the last 8 weeks: None Family Hx:: Cancer, Heart Attack
--- NOTE | 2020-05-31 11:54 | HMH.PROC ---
[facility] Procedure Note Procedure Note:: Colonoscopy Procedure Report: Colonoscopy with cold snare polypectomy and cold biopsies Endoscopist: Dino Honeycutt II, MD Referring physician: JARED Pascal/Shaun Jesus M.D. Date of Procedure: May 31, 2020 Equipment: Olympus 190 variable stiffness pediatric colonoscope Sedation: MAC sedation Indication: Mrs. Tovar is a 60-year-old female with epigastric and some lower abdominal pain and discomfort with diarrhea. She does note mucousy bowel movements. She has moderate bloating and gassiness. She has had symptoms for approximately 1 year. She does report bowel frequency and urgency. The patient reports no rectal bleeding, weight loss or family history of colon cancer. She reports no family history of colitis or Crohn's disease. This is her first colonoscopy and is performed for diagnostic purposes. Procedure: Prior to the procedure, a history and physical exam was performed, and patient's medications and allergies were reviewed. The risks, benefits and alternatives of the sedation and procedure were discussed with the patient. All questions were answered and informed consent was obtained. The patient was brought to the procedure room. Patient identification and proposed procedure were verified by the physician and the nurse. The patient was placed in a left lateral decubitus position and the scope was passed under direct vision. Throughout the procedure, the patient's blood pressure, pulse, and oxygen saturations were monitored continuously. The colonoscopy was accomplished without difficulty. The patient tolerated the procedure well. Findings: On digital rectal examination there was normal rectal tone. There were no external hemorrhoids. The colonoscope was introduced through the anal canal to the rectum and advanced to the cecum. The ileocecal valve and appendiceal orifice were identified. The scope was advanced a short distance into the ileum which appeared grossly normal. The scope was then withdrawn into the colon. There was a 10 to 11 mm polyp in the cecum removed via cold snare polypectomy. Cold biopsies were taken from the right colon to rule out microscopic colitis. The remaining cecum, ascending and transverse colon and mucosa were grossly normal. There were scattered diverticuli throughout the descending and sigmoid colon (LEFT colon). The rectum itself was normal. Upon retroflexion within the rectum there were grade 1-2 internal hemorrhoids. The preparation was excellent throughout with [place] Preparation Score of 9. The cecal time was 15 minutes. Impression: 1. Cecal colon polyp (10-11 mm) 2. Left-sided diverticulosis 3. Grade 1-2 internal hemorrhoids Plan: I will follow-up the biopsies to rule out microscopic colitis. I do suspect this represents IBS?D (diarrhea predominant irritable bowel syndrome). If the biopsies are normal, I would consider Marga. We will discuss dietary measures, bulk fiber, probiotic and IBgard. I will follow up the polyp pathology and recommend repeat colonoscopy again in 3-5 years based upon the polyp histology.
[2020-05-31 11:56] VITALS: BP 96/57; PULSE 66; RESP 18; TEMP 36.4; O2SAT 92
[2020-05-31 12:06] VITALS: BP 128/88; PULSE 66; RESP 18; O2SAT 94
[2020-05-31 12:16] VITALS: BP 150/77; PULSE 60; RESP 18; O2SAT 94
[2020-05-31 12:26] VITALS: BP 156/75; PULSE 61; RESP 18; O2SAT 93
== END 2020-05-31 12:00 | disposition hospice, home (50) ==
LOC: OUTP 10:02
PROVIDERS: PCP Nurse Practitioner Family; Visit Provider Internal Medicine Gastroenterology
PROC: 0DJD8ZZ Inspection of Lower Intestinal Tract, Via Natural or Artificial Opening Endoscopic (ICD-10-PCS; CPT 45378; principal; 2020-05-31 11:30)
DX: K63.5 Polyp of colon (principal); K57.30 Diverticulosis of large intestine without perforation or abscess without bleeding; K64.0 First degree hemorrhoids; J44.9 Chronic obstructive pulmonary disease, unspecified; E11.9 Type 2 diabetes mellitus without complications; E78.5 Hyperlipidemia, unspecified; I10 Essential (primary) hypertension; E07.9 Disorder of thyroid, unspecified; Z80.9 Family history of malignant neoplasm, unspecified; Z82.3 Family history of stroke; Z88.1 Allergy status to other antibiotic agents; Z79.899 Other long term (current) drug therapy
CPT/HCPCS: 45385; 45380; 82962

== ENCOUNTER 2020-06-01 10:26 | Observation (INO) | payer BC, SELFPAY ==
[2020-06-01] VITALS (8 sets, daily range): BP systolic 145–191; BP diastolic 72–90; PULSE 57–72; RESP 16–21; TEMP 36.6–37; O2SAT 95–98; BMI 42.7; BMI 41.5
--- NOTE | 2020-06-01 10:30 | HMH.EDGENADL ---
ED Disposition Clinical Impression: Bright red blood per rectum Postoperative complication Qualifiers: Surgical complication system/body Area: digestive system Surgical complication type: unspecified Procedure type: digestive system Qualified Code(s): K91.89 - Other postprocedural complications and disorders of digestive system Disposition: Admitted as Observation Condition on Discharge: Good Referrals: Russell Sims APRN [Primary Care Provider] - Time of Disposition: 11:52 - Critical Care Critical Care Time: No Attestation: On , the high probability of a clinically significant, sudden or life threatening deterioration of the following system(s) required my full and direct attention, intervention and personal management. The time I documented below is in addition to time spent performing reported procedures but includes the following listed in this critical care notation. Medical Decision Making - Medical Records Medical records reviewed: Yes: I reviewed the patient's medical records. - Atif Inquiry Pt receiving controlled substance: No Vital Signs: 06/01/20 10:27 Temperature 97.8 F Temperature Source Oral Pulse Rate [Radial] 72 Respiratory Rate 16 Blood Pressure [Right Arm] 158/73 H Blood Pressure Mean [Right Arm] 101 Blood Pressure Position [Right Arm] Sitting 02 Sat by Pulse Oximetry 98 Oxygen Delivery Method Room Air - Lab Data Lab results reviewed: Yes: I reviewed the patient's lab results. Lab Results 06/01/20 10:55: WBC 6.1, RBC 4.22, Hgb 13.2, Hct 39.9, MCV 94.7, MCH 31.3 H, MCHC 33.1, RDW 13.3, Plt Count 268, MPV 8.2, Neut % (Auto) 52.9, Lymph % (Auto) 40.0, [place] % (Auto) 3.6, Eos % (Auto) 2.4, Baso % (Auto) 1.1, Neut # (Auto) 3.2, Lymph # (Auto) 2.4, [place] # (Auto) 0.2, Eos # (Auto) 0.2, Baso # (Auto) 0.1 06/01/20 10:55: Sodium 140, Potassium 3.8, Chloride 105, Carbon Dioxide 27, Anion Gap 11.8, BUN 15, Creatinine 0.60, Estimated Creat Clear 73, Estimated GFR 102, Est GFR ( Amer) 124, Glucose 183 H, Calcium 9.3, Total Bilirubin 0.7, AST 27, ALT 31, Alkaline Phosphatase 76, Total Protein 7.2, Albumin 4.4, Globulin 2.8, Albumin/Globulin Ratio 1.6 Result diagrams: 06/01/20 10:55 06/01/20 10:55 Orders (Tests/Meds): ORDERS Category Date Time Status Full Resp Panel w/COVID ([facility]) Routine Lab 06/01/20 11:43 Ordered Medical Decision Narrative: 60yo F evaluated for bright red blood per rectum. Patient in no acute distress on initial evaluation. Labs are already resulted by time I get to evaluate the patient and her H/H is 13/39. Patient's exam is benign. Page placed to Dr. Honeycutt of gastroenterology. Case discussed with Dr. Honeycutt who request the patient be admitted until 24 hours of blood free stool has been achieved. Of course we will hold any anticoagulants. Patient is allowed clear liquids. Dr. Honeycutt states he is happy to be notified if the patient worsens and needs further intervention. Plan discussed with patient who is in agreement. General Adult HPI - General Stated complaint: bleeding Time Seen by Provider: 06/01/20 10:30 Mode of Arrival: Ambulatory - History of Present Illness HPI narrative: 60yo F with past medical history significant diabetes and arthritis presents the emergency department secondary to bright red blood per rectum. Patient reports he underwent colonoscopy yesterday and had a polyp removed. She has had bright red blood per rectum this morning. States it began as dark blood and is now brighter. Reports pure liquid with no clots. Denies any fever, abdominal pain. Patient reports she has chronic arthritis and takes Motrin 800 mg 3 times daily of which she is taken 1 since her procedure. - Related Data Home Medications Medication Instructions Recorded Confirmed Albuterol Sulfate [Albuterol 2.5 mg INHALATION Q6H 05/23/20 05/31/20 0.083% 2.5mg/3mL neb] Albuterol Sulfate [Albuterol See Rx Instructions .ROUTE .COMPLEX
[2020-06-01 11:05] LABS: Basophils # 0.1 K/mm3 (0-0.2); Basophils % 1.1 % (0.1-2.0); Eosinophils # 0.2 K/mm3 (0.0-0.4); Eosinophils % 2.4 % (0.1-12.0); Hematocrit 39.9 % (37.0-47.0); Hemoglobin 13.2 g/dL (12.2-16.2); Lymphocytes # 2.4 K/mm3 (0.7-4.5); Mean Corpuscular HGB Conc 33.1 g/dL (31.8-35.4); Mean Corpuscular Hemoglobin 31.3 pg (27.0-31.2); Mean Corpuscular Volume 94.7 fl (81-99); Mean Platelet Volume 8.2 fl (7.4-10.4); Monocytes # 0.2 K/mm3 (0.1-1.0); Monocytes % 3.6 % (1.7-9.3); Neutrophils # 3.2 K/mm3 (1.8-7.8); Neutrophils % 52.9 % (37.0-80.0); Platelet Count 268 K/mm3 (142-424); Red Blood Count 4.22 M/mm3 (4.20-5.40); Red Cell Distribution Width 13.3 % (11.5-17.5); White Blood Count 6.1 K/mm3 (4.8-10.8)
[2020-06-01 11:07] LABS: Chloride 105 mmol/L (98-107); Sodium 140 mmol/L (136-145)
[2020-06-01 11:08] LABS: Potassium 3.8 mmoL/L (3.5-5.1)
[2020-06-01 11:10] LABS: Alanine Aminotransferase 31 U/L (12-78); Albumin Level 4.4 g/dl (3.5-5.0); Albumin/Globulin Ratio 1.6 (1.1-1.8); Alkaline Phosphatase 76 U/L (38-126); Anion Gap 11.8 mEq/L (5-15); Aspartate Amino Transferase 27 U/L (14-36); Bilirubin,Total 0.7 mg/dl (0.2-1.3); Blood Urea Nitrogen 15 mg/dl (7-17); Calcium 9.3 mg/dl (8.4-10.2); Carbon Dioxide 27 mmol/L (22.0-30.0); Creatinine Clearance Estimated 73 mL/min (50-200); Estimated Glomerular Filt Rate 102 ml/min (>60); GFR (African American) 124 ML/MIN (>60); Globulin 2.8 g/dL (1.3-3.2); Glucose 183 mg/dl (74-100); Total Protein,Serum 7.2 g/dl (6.3-8.2)
--- NOTE | 2020-06-01 11:33 | PC.NURSE ---
DR Terrazas speaking with Dr Honeycutt.
--- NOTE | 2020-06-01 11:47 | PC.NURSE ---
notified malt house loader of admission
[2020-06-01 11:52] LABS: Adenovirus,PCR Not Detected (NotDetected); Bordetella Pertussis Not Detected (NotDetected); Chlamydophila Pneumoniae, PCR Not Detected (NotDetected); Coronavirus 19, PCR Not Detected (NotDetected); Coronavirus 229E Not Detected (NotDetected); Coronavirus NL63 Not Detected (NotDetected); Coronavirus OC43 Not Detected (NotDetected); Coronovirus HKU1,PCR Not Detected (NotDetected); Human Metapneumovirus Not Detected (NotDetected); Influenza A, PCR Not Detected (NotDetected); Influenza AH1, 2009 Not Detected (NotDetected); Influenza AH1, PCR Not Detected (NotDetected); Influenza AH3,PCR Not Detected (NotDetected); Influenza B, PCR Not Detected (NotDetected); Mycoplasma Pneumoniae, PCR Not Detected (NotDetected); Parainfluenza 1, PCR Not Detected (NotDetected); Parainfluenza 2, PCR Not Detected (NotDetected); Parainfluenza 3, PCR Not Detected (NotDetected); Parainfluenza 4, PCR Not Detected (NotDetected); Respiratory Syncytial Virus Not Detected (NotDetected); Rhinovirus/Enterovirus Not Detected (NotDetected)
--- NOTE | 2020-06-01 13:08 | PC.NURSE ---
per lab pt covid swab has 66 minutes left until results
--- NOTE | 2020-06-01 13:34 | PC.NURSE ---
REPORT CALLED TO ARACELI PATTON
--- NOTE | 2020-06-01 13:58 | P.CONPHA_ITS ---
[facility] Pharmacy VTE Monitoring - Patient Demographics Admission date: 06/01/20 Report Date: 06/01/20 Time: 13:58 Allergies/Adverse Reactions: Patient Allergies amoxicillin [From Augmentin] Allergy (Intermediate, Verified 04/10/20 13:33) clavulanic acid [From Augmentin] Allergy (Intermediate, Verified 04/10/20 13:33) meloxicam Allergy (Intermediate, Verified 04/10/20 13:33) Height: 1.52 m Weight: 99.337 kg Patient Problems: Current Active Problems Bright red blood per rectum (Acute) Postoperative complication (Acute) - VTE Risk Labs: VTE Related Lab Results Hgb 13.2 g/dL (12.2-16.2) 06/01/20 10:55 Hct 39.9 % (37.0-47.0) 06/01/20 10:55 Plt Count 268 K/mm3 (142-424) 06/01/20 10:55 BUN 15 mg/dl (7-17) 06/01/20 10:55 Creatinine 0.60 mg/dl (0.52-1.04) 06/01/20 10:55 Estimated Creat Clear 73 mL/min (50-200) 06/01/20 10:55 - Prophylaxis Types of VTE Prophylaxis: IPCS Knee High (ICDS ORDERED)
[2020-06-01 14:56] LABS: POC Glucose,Bedside 141 (70-110)
--- NOTE | 2020-06-01 17:32 | PC.NURSE ---
Pt has been pleasant and cooperative this shift. A&O X4. No complaints of pain. Pt is on room air with sats. >90%. Lungs CTA. Skin is C/D/I. No edema noted. Pt ambulates independently and uses the toilet to void clear, yellow urine without issue. No BM thus far since arrival to unit. FSBS result noted to be 141. 20 G peripheral IV in the LT forearm is patent and infusing LR @ 75 ML/HR. B/P elevated on admission, B/P has since lowered after administration of Lisinopril. VSS. Call light within reach. Will continue to monitor.
--- NOTE | 2020-06-01 20:09 | PC.NURSE ---
pt ambulated to bathroom without diff.,void x1
[2020-06-01 22:54] LABS: POC Glucose,Bedside 156 (70-110)
[2020-06-01 23:39] LABS: Hematocrit 35.5 % (37.0-47.0)
[2020-06-01 23:41] LABS: Hemoglobin 11.5 g/dL (12.2-16.2)
[2020-06-02] VITALS: BP 133/66; PULSE 60; RESP 18; TEMP 36.5; O2SAT 94
[2020-06-02 03:32] VITALS: BP 162/69; PULSE 61; RESP 17; TEMP 36.5; O2SAT 97
--- NOTE | 2020-06-02 05:14 | PC.NURSE ---
ice passed trash and linens picked up. pt had no other needs.KHueyM
[2020-06-02 05:25] VITALS: BMI 42.0
[2020-06-02 06:11] LABS: Hematocrit 35.4 % (37.0-47.0); Hemoglobin 11.6 g/dL (12.2-16.2)
[2020-06-02 06:13] LABS: Anion Gap 6.9 mEq/L (5-15); Blood Urea Nitrogen 9 mg/dl (7-17); Calcium 8.9 mg/dl (8.4-10.2); Carbon Dioxide 26 mmol/L (22.0-30.0); Chloride 108 mmol/L (98-107); Creatinine Clearance Estimated 69 mL/min (50-200); Estimated Glomerular Filt Rate 102 ml/min (>60); GFR (African American) 124 ML/MIN (>60); Glucose 168 mg/dl (74-100); Potassium 3.9 mmoL/L (3.5-5.1); Sodium 137 mmol/L (136-145)
--- NOTE | 2020-06-02 06:25 | PC.NURSE ---
Pt rested comfortably in bed. Pt reports no bowel movement for this shift. Patient did not required pain medication thsi shift. Will continue to monitor for any acute changes.
[2020-06-02 06:27] LABS: POC Glucose,Bedside 149 (70-110)
[2020-06-02 08:00] VITALS: BP 147/84; PULSE 63; RESP 16; TEMP 36.4; O2SAT 98
--- NOTE | 2020-06-02 09:42 | HMH.HPDC ---
General - General Admission date:: 06/01/20 Discharge date: 06/02/20 *Admission Date: 06/01/20 *Chief complaint: rectal bleeding *History of present illness: this patient presented to the ed with c/c of rectal bleeding after colonoscopy- no sig pain - bleeding not assoc with bm- no fever and novomiting - she was seen in the ed -10yo F with past medical history significant diabetes and arthritis presents the emergency department secondary to bright red blood per rectum. Patient reports he underwent colonoscopy yesterday and had a polyp removed. She has had bright red blood per rectum this morning. States it began as dark blood and is now brighter. Reports pure liquid with no clots. Denies any fever, abdominal pain. Patient reports she has chronic arthritis and takes Motrin 800 mg 3 times daily of which she is taken 1 since her procedure. pt was discussed with dr castro and was admitted- [facility] History I have reviewed the patient's past medical history: Yes Medical History: Reports:: Asthma, Chronic Obstructive Pulmonary Disease (COPD), Diabetes Mellitus Type 2, Hyperlipidemia, Hypertension Denies:: Cancer, Diabetes Mellitus Type 1, Internal Pacemaker, MRSA, Seizures *Have you ever received a pneumonia vaccine?: Yes *Have you received a flu vaccine this season?: Yes Other Medical History: Reports: Arthritis, Thyroid Disease. Denies: Blood Transfusion Reaction Laterality Cases: Right: Breast Biopsy Other Surgeries: Yes: Colonoscopy, Dilation and Curettage, Thyroidectomy, Tubal Ligation, Other. No: Pacemaker Amputation: No Fractures: No - *Social History Last grade of school completed: High school graduate Smoking Status: Former smoker Tobacco Type: cigarettes Alcohol Intake: never Substance Use Type: denies use *Occupational Status:: employed Housing: house Household Members: significant other *Travel in the last 8 weeks: None Family Hx:: Cancer, Heart Attack Review of Systems - Review of Systems Review of systems:: pertinent systems reviewed and negative unless documented below - Constitutional Denies fever(s) - Eyes Denies change in vision - ENT Denies sore throat - *Cardiovascular Denies chest pain at rest - *Respiratory Denies cough - *Gastrointestinal Reports bright, red blood in stools, Denies abdominal pain - *Genitourinary Denies blood in urine - *Musculoskeletal Denies joint pain - Integumentary/Breasts Denies rash - *Neurologic Denies seizure-like activity, Denies localized weakness, Denies tingling/numbness/burning sensations - Psychiatric Denies anxiety Exam Vital signs and Labs for Last 24 Hours: Temp Pulse Resp BP Pulse Ox 97.6 F 63 16 147/84 H 98 06/02/20 08:00 06/02/20 08:00 06/02/20 08:00 06/02/20 08:00 06/02/20 08:00 Laboratory Results - last 24 hr 06/01/20 10:55: WBC 6.1, RBC 4.22, Hgb 13.2, Hct 39.9, MCV 94.7, MCH 31.3 H, MCHC 33.1, RDW 13.3, Plt Count 268, MPV 8.2, Neut % (Auto) 52.9, Lymph % (Auto) 40.0, [place] % (Auto) 3.6, Eos % (Auto) 2.4, Baso % (Auto) 1.1, Neut # (Auto) 3.2, Lymph # (Auto) 2.4, [place] # (Auto) 0.2, Eos # (Auto) 0.2, Baso # (Auto) 0.1 06/01/20 10:55: Sodium 140, Potassium 3.8, Chloride 105, Carbon Dioxide 27, Anion Gap 11.8, BUN 15, Creatinine 0.60, Estimated Creat Clear 73, Estimated GFR 102, Est GFR ( Amer) 124, Glucose 183 H, Calcium 9.3, Total Bilirubin 0.7, AST 27, ALT 31, Alkaline Phosphatase 76, Total Protein 7.2, Albumin 4.4, Globulin 2.8, Albumin/Globulin Ratio 1.6 06/01/20 11:42: Chlamy pneumoniae PCR Not detected, Adenovirus (PCR) Not detected, B. pertussis DNA (PCR) Not detected, Coronavirus OC43 (PCR) Not detected, Coronavirus HKU1 (PCR) Not detected, Coronavirus 229E (PCR) Not detected, SARS-CoV-2 (PCR) Not detected, Coronavirus NL63 (PCR) Not detected, Human Metapneumovir PCR Not detected, Influenza A (H1) PCR Not detected, Influ A (H1N1/09) PCR Not detected, Influenza A (H3) PCR Not detected, Influenza Type A (PCR) Not de
== END 2020-06-02 11:28 | disposition home or self-care (01) ==
LOC: ER 11:52 → 2ND 14:51
PROVIDERS: Admitting Provider Internal Medicine Adolescent Medicine; Emergency Provider Family Medicine; PCP Nurse Practitioner Family; Visit Provider Emergency Medicine
DX: K62.5 Hemorrhage of anus and rectum (principal); J44.9 Chronic obstructive pulmonary disease, unspecified; E05.00 Thyrotoxicosis with diffuse goiter without thyrotoxic crisis or storm; I10 Essential (primary) hypertension; E78.00 Pure hypercholesterolemia, unspecified; M19.90 Unspecified osteoarthritis, unspecified site; Z87.891 Personal history of nicotine dependence; G62.9 Polyneuropathy, unspecified; E66.9 Obesity, unspecified; E03.9 Hypothyroidism, unspecified; D64.9 Anemia, unspecified; E11.40 Type 2 diabetes mellitus with diabetic neuropathy, unspecified; Z86.010 Personal history of colon polyps; Z68.41 Body mass index [BMI] 40.0-44.9, adult; Z88.0 Allergy status to penicillin; Z88.8 Allergy status to other drugs, medicaments and biological substances
CPT/HCPCS: 80048; 80053; 82962; 85014; 85018; 85025; 87581; 87633; 87798; 96374; 99284; G0378

== ENCOUNTER → 2020-06-10 15:35 | Outpatient (POV) | payer BC, SELFPAY | PROVIDERS: Visit Provider Nurse Practitioner Family | DX: Z00.00 Encounter for general adult medical examination without abnormal findings (principal) ==

== ENCOUNTER → 2020-06-14 09:31 | Outpatient (CLI) | payer BC, SELFPAY ==
--- NOTE | 2020-06-14 09:36 | MM_ITS ---
PROCEDURE INFORMATION: Exam: MG Screening 3D Mammography Exam date and time: 06/14/2020 9:36 AM Age: 60 years old Clinical indication: Encounter for screening mammogram for malignant neoplasm of breast . Strong family history of breast carcinoma TECHNIQUE: Imaging protocol: Screening tomosynthesis and 2D mammography including computer-aided detection (CAD) when performed. COMPARISON: 1. MG MM DIG MAMM DX UNILAT RT CAD 10/12/2019 11:37 AM 2. MG MM DIG MAMM DX UNILAT RT CAD 05/05/2019 1:48 PM 3. MG MM DIG SCREENING MAMM BI W/CAD 10/07/2018 4:35 PM 4. MG SCBI MM Dig screening mamm BI w/CAD 05/11/2017 9:04 AM FINDINGS: MAMMOGRAPHY: Breast composition: The breasts are almost entirely fatty. Mass: No new suspicious masses. Architectural distortion: No suspicious distortion. Calcifications: No suspicious calcifications. Asymmetric density: None. Skin thickening: None. Axillary adenopathy: None. IMPRESSION: No mammographic evidence of malignancy. Annual screening is recommended unless otherwise clinically indicated. Given the reported risk factors, a breast cancer risk assessment may prove useful for further evaluation. ASSESSMENT: BI-RADS Category 1: Negative
== END ==
PROVIDERS: PCP Nurse Practitioner Family; Visit Provider Emergency Medicine
DX: Z12.31 Encounter for screening mammogram for malignant neoplasm of breast (principal)
CPT/HCPCS: 77063; 77067

== ENCOUNTER → 2020-06-14 17:05 | Outpatient (CLI) | payer BC, SELFPAY ==
[2020-06-14 17:38] LABS: Hemoglobin A1C 8.4 % (4.0-6.0)
== END ==
PROVIDERS: Visit Provider Nurse Practitioner Family
DX: E11.9 Type 2 diabetes mellitus without complications (principal)
CPT/HCPCS: 83036

== ENCOUNTER → 2020-08-23 13:35 | Outpatient (CLI) | payer BC, SELFPAY | PROVIDERS: Visit Provider Nurse Practitioner Family | DX: N39.0 Urinary tract infection, site not specified (principal) | CPT/HCPCS: 87086 ==

== ENCOUNTER 2021-01-12 11:30 | Emergency (ER) | payer BC, SELFPAY ==
[2021-01-12 13:53] VITALS: BP 156/79; PULSE 65; RESP 18; TEMP 36.6; O2SAT 95; BMI 42.7
--- NOTE | 2021-01-12 14:21 | HMH.EDUTC ---
[facility] [place] Impression: Vertigo Sinusitis Qualifiers: Sinusitis location: unspecified location Chronicity: acute Recurrence: non-recurrent Qualified Code(s): J01.90 - Acute sinusitis, unspecified Disposition: Home, Self-Care Condition on Discharge: Good Instructions: DI for Sinusitis, DI for Vertigo, Meclizine Additional Instructions: Drink plenty of fluids. Take tylenol or ibuprofen for pain or fever. Take the medications as directed. Follow up with your regular doctor. GO TO THE ER FOR ANY WORSENING SYMPTOMS Prescriptions: Meclizine HCl [Antivert 25mg tablet] 25 mg PO Q6HP PRN #30 tab PRN Reason: Dizziness Transmission Status: Pending to [id number] Cefdinir [Omnicef 300mg Capsule] 300 mg PO BID #20 cap Transmission Status: Pending to [id number] Referrals: Russell Sims APRN [Primary Care Provider] - Forms: Work/School Release Time of Disposition: 14:47 Medical Decision Making - Medical Records Medical records reviewed: No: I reviewed the patient's medical records. - Atif Inquiry Pt receiving controlled substance: No Vital Signs: 01/12/21 13:53 Temperature 97.8 F Temperature Source Oral Pulse Rate [Left] 65 Respiratory Rate 18 Blood Pressure [Right Arm] 156/79 H Blood Pressure Mean [Right Arm] 104 02 Sat by Pulse Oximetry 95 [facility] [place] - General Stated complaint: head congestion, ear pain, cough, sore throat Time Seen by Provider: 01/12/21 14:21 Mode of Arrival: Ambulatory Source of Information: Patient Limitations: No Limitations Description of Symptoms (Recalled from Triage Doc. by RN): pt c/o bilateral ear pressure, sinus congestion/pressure, SOLIZ and vertigo. HEENT Symptoms (Recalled from RN notes): Yes (pressure in sinuses/ bilateral ears and congestion) Resp Symptoms (Recalled from RN notes): No Skin Symptoms (Recalled from RN notes): No MS Symptoms (Recalled from RN notes): No Functional Status (Recalled from RN notes): wnl - History of Present Illness Provider Complaint: She c/o worsening sinus congestion, ear pain and a cough for the past 5 days. She has had some dizziness also. She usually gets vertigo when she gets a sinus infection and that is what she thinks that is going on now. She has been vaccinated covid-19. She denies any fever, chills, body aches. - Related Data Home Medications Medication Instructions Recorded Confirmed Albuterol Sulfate [Albuterol 1 puff IH Q6HP PRN 05/23/20 10/24/20 Sulfate Hfa] Levothyroxine Sodium [Synthroid 175 mcg PO DAILY 05/23/20 10/24/20 175mcg (0.175mg) tablet] Sitagliptin Phosphate [Januvia 100 mg PO DAILY 05/23/20 10/24/20 100mg tablet] Previous Rx's Medication Instructions Recorded pravastatin 40 mg tablet See Rx Instructions .ROUTE 07/10/20 .COMPLEX #90 tablet lisinopril 20 mg tablet See Rx Instructions .ROUTE 07/15/20 .COMPLEX #90 tablet fluticasone furoate 200 See Rx Instructions .ROUTE 08/13/20 mcg-vilanterol 25 mcg/dose .COMPLEX #60 each inhalation powder dicyclomine 20 mg tablet 20 mg PO TID PRN #90 tab 10/24/20 Cefdinir [Omnicef 300mg Capsule] 300 mg PO BID #20 cap 01/12/21 Meclizine HCl [Antivert 25mg 25 mg PO Q6HP PRN #30 tab 01/12/21 tablet] Allergies Allergy/AdvReac Type Severity Reaction Status Date / Time amoxicillin [From Augmentin] Allergy Intermediate Verified 01/12/21 13:57 clavulanic acid Allergy Intermediate Verified 01/12/21 13:57 [From Augmentin] meloxicam Allergy Intermediate Verified 01/12/21 13:57 - Worker's Comp Is this a Worker's Comp case?: No [facility] History - Hepatitis A Screen Drug use history?: No High risk sexual behaviors?: No History of sexually transmitted infection?: No Currently employed?: No Childcare worker?: No Do you have indoor plumbing?: Yes Do you have electricity?: Yes Attestation statement:: This patient has been screened for Hepatitis A risk factors. I have reviewed
[2021-01-12 14:48] VITALS: BP 156/79; PULSE 65; RESP 18; TEMP 36.6
== END 2021-01-12 14:57 | disposition home or self-care (01) ==
PROVIDERS: Emergency Provider Nurse Practitioner Family; PCP Nurse Practitioner Family
DX: J01.90 Acute sinusitis, unspecified (principal); E11.9 Type 2 diabetes mellitus without complications; I10 Essential (primary) hypertension; E78.5 Hyperlipidemia, unspecified; Z79.899 Other long term (current) drug therapy
CPT/HCPCS: 99202; G0463

== ENCOUNTER 2021-01-17 10:49 | Emergency (ER) | payer BC, SELFPAY ==
[2021-01-17 10:50] VITALS: BP 192/86; PULSE 80; RESP 16; TEMP 36.9; O2SAT 96; BMI 42.7
[2021-01-17 13:11] VITALS: PULSE 77; O2SAT 95
--- NOTE | 2021-01-17 13:13 | XR_ITS ---
PROCEDURE: XR CHEST 2V CLINICAL HISTORY: covid symptoms COMPARISON: CT [facility] CT CHEST W/O CONTRAST from 02/14/2016 CR CXR2 CHEST-AP VIEW ONLY from 11/16/2016 CR CXR CHEST(2 VIEWS-NOT PORTABLE) from 01/18/2017 CR CXR2V XR chest 2V from 05/19/2017 FINDINGS: The cardiomediastinal silhouette and pulmonary vascularity are within normal limits. There is increased density in the right lung base medially felt to be related to prominent pericardial fat pad and underlying atelectatic changes. Patchy density in the left lower lobe which could be due to an area of ill-defined infiltrate. No acute bony abnormalities. IMPRESSION: Possible patchy infiltrate in the left lower lobe Dictated by: Vinayak Valenzuela MD 01/17/2021 13:42 Vinayak Valenzuela MD in [place] 01/17/2021 13:42
--- NOTE | 2021-01-17 13:21 | HMH.EDGENADL ---
ED Disposition Clinical Impression: Upper respiratory infection Qualifiers: URI type: unspecified URI Qualified Code(s): J06.9 - Acute upper respiratory infection, unspecified Pneumonia Qualifiers: Aspiration pneumonia type: unspecified Laterality: left Lung location: unspecified part of lung Disposition: Home, Self-Care Condition on Discharge: Good Instructions: DI for Acute Bronchitis Additional Instructions: Please continue taking your cefdinir. You have been given an additional antibiotic in addition. Please continue using your home inhalers. Monitor your condition closely. If your condition worsens or any other concerning symptoms we discussed arise, please return to the emergency department for reassessment. Please make sure to see your primary care doctor within 1 week to monitor for improvement and resolution of your condition. Referrals: Russell Sims APRN [Primary Care Provider] - - Critical Care Critical Care Time: No Attestation: On 01/17/21, the high probability of a clinically significant, sudden or life threatening deterioration of the following system(s) required my full and direct attention, intervention and personal management. The time I documented below is in addition to time spent performing reported procedures but includes the following listed in this critical care notation. Medical Decision Making - Medical Records Medical records reviewed: Yes: I reviewed the patient's medical records. - Atif Inquiry Pt receiving controlled substance: No Vital Signs: 01/17/21 10:50 01/17/21 13:11 01/17/21 13:33 Temperature 98.4 F Temperature Source Oral Pulse Rate 77 85 Pulse Rate [Left Radial] 80 Respiratory Rate 16 Blood Pressure [Left Arm] 192/86 H Blood Pressure Mean [Left Arm] 121 Blood Pressure Source [Left Arm] Automatic Cuff Blood Pressure Position [Left Arm] Sitting 02 Sat by Pulse Oximetry 96 95 95 Oxygen Delivery Method Room Air 01/17/21 16:17 Temperature Temperature Source Pulse Rate 75 Pulse Rate [Left Radial] Respiratory Rate Blood Pressure [Left Arm] Blood Pressure Mean [Left Arm] Blood Pressure Source [Left Arm] Blood Pressure Position [Left Arm] 02 Sat by Pulse Oximetry 96 Oxygen Delivery Method Room Air - Lab Data Lab Results 01/17/21 12:57: SARS-CoV-2 (PCR) Not detected, Influenza A Untype (PCR) Not detected, Influenza Type B (PCR) Not detected 01/17/21 13:42: WBC 7.1, RBC 4.67, Hgb 15.3, Hct 45.5, MCV 97.4, MCH 32.7 H, MCHC 33.6, RDW 12.4, Plt Count 253, MPV 8.2, Neut % (Auto) 71.0, Lymph % (Auto) 23.1, [place] % (Auto) 3.3, Eos % (Auto) 1.7, Baso % (Auto) 0.9, Neut # (Auto) 5.1, Lymph # (Auto) 1.6, [place] # (Auto) 0.2, Eos # (Auto) 0.1, Baso # (Auto) 0.1 01/17/21 13:42: Sodium 135 L, Potassium 4.0, Chloride 101, Carbon Dioxide 31 H, Anion Gap 7.0, BUN 9, Creatinine 0.60, Estimated Creat Clear 72, Estimated GFR 102, Est GFR ( Amer) 123, Glucose 208 H, Calcium 9.3, Total Bilirubin 0.4, AST 49 H, ALT 56, Alkaline Phosphatase 94, Troponin I < 0.01, Total Protein 7.5, Albumin 4.3, Globulin 3.2, Albumin/Globulin Ratio 1.3 01/17/21 13:42: D-Dimer 0.66 H 01/17/21 16:38: Troponin I < 0.01 Result diagrams: 01/17/21 13:42 01/17/21 13:42 Orders (Tests/Meds): ED MEDICATIONS Discontinued Medications Generic Name Dose Route Start Last Admin Trade Name Freq PRN Reason Stop Dose Admin Albuterol/Ipratropium 6 ml 01/17/21 13:30 Ipratropium/Albuterol 3 Ml [facility] 02/16/21 13:29 Q1H ÁNGEL Albuterol/Ipratropium 3 ml 01/17/21 15:55 01/17/21 17:56 Ipratropium/Albuterol 3 Ml Neb 01/17/21 15:56 3 ml ONCE ONE Administration Magnesium Sulfate 2 gm/ Sodium 104 mls @ 100 mls/hr 01/17/21 17:19 01/17/21 17:24 Chloride IV 01/17/21 18:21 100 mls/hr ONCE ONE Administration Ketorolac Tromethamine 15 mg 01/17/21 15:25 01/17/21 15:25 Ketorolac 30mg/Ml Vial IV 01/17/21 15:26 15 mg ONCE ONE Administratio
[2021-01-17 13:27] LABS: Coronavirus 19, PCR Not Detected (NotDetected); Influenza A, PCR Not Detected (NotDetected); Influenza B, PCR Not Detected (NotDetected)
--- NOTE | 2021-01-17 13:30 | PC.NURSE ---
Pt to rad
[2021-01-17 13:33] VITALS: PULSE 85; O2SAT 95
[2021-01-17 13:52] LABS: Basophils # 0.1 K/mm3 (0-0.2); Basophils % 0.9 % (0.1-2.0); Eosinophils # 0.1 K/mm3 (0.0-0.4); Eosinophils % 1.7 % (0.1-12.0); Hematocrit 45.5 % (37.0-47.0); Hemoglobin 15.3 g/dL (12.2-16.2); Lymphocytes # 1.6 K/mm3 (0.7-4.5); Lymphocytes % 23.1 % (10-50); Mean Corpuscular HGB Conc 33.6 g/dL (31.8-35.4); Mean Corpuscular Hemoglobin 32.7 pg (27.0-31.2); Mean Corpuscular Volume 97.4 fl (81-99); Mean Platelet Volume 8.2 fl (7.4-10.4); Monocytes # 0.2 K/mm3 (0.1-1.0); Monocytes % 3.3 % (1.7-9.3); Neutrophils # 5.1 K/mm3 (1.8-7.8); Platelet Count 253 K/mm3 (142-424); Red Blood Count 4.67 M/mm3 (4.20-5.40); Red Cell Distribution Width 12.4 % (11.5-17.5); White Blood Count 7.1 K/mm3 (4.8-10.8)
[2021-01-17 14:11] LABS: Alanine Aminotransferase 56 U/L (12-78); Albumin Level 4.3 g/dl (3.5-5.0); Albumin/Globulin Ratio 1.3 (1.1-1.8); Alkaline Phosphatase 94 U/L (38-126); Aspartate Amino Transferase 49 U/L (14-36); Bilirubin,Total 0.4 mg/dl (0.2-1.3); Blood Urea Nitrogen 9 mg/dl (7-17); Calcium 9.3 mg/dl (8.4-10.2); Carbon Dioxide 31 mmol/L (22.0-30.0); Chloride 101 mmol/L (98-107); Creatinine Clearance Estimated 72 mL/min (50-200); Estimated Glomerular Filt Rate 102 ml/min (>60); GFR (African American) 123 ML/MIN (>60); Globulin 3.2 g/dL (1.3-3.2); Glucose 208 mg/dl (74-100); Sodium 135 mmol/L (136-145); Total Protein,Serum 7.5 g/dl (6.3-8.2)
[2021-01-17 14:15] LABS: D-Dimer 0.66 ug/mL (0.0-0.5)
[2021-01-17 14:27] LABS: Troponin I < 0.01 ng/ml (0.00-0.034)
[2021-01-17 16:17] VITALS: PULSE 75; O2SAT 96
[2021-01-17 17:39] LABS: Troponin I < 0.01 ng/ml (0.00-0.034)
[2021-01-17 18:37] VITALS: BP 179/82; PULSE 74; RESP 18; TEMP 36.9; O2SAT 95
== END 2021-01-17 18:40 | disposition home or self-care (01) ==
PROVIDERS: Emergency Provider Emergency Medicine; PCP Nurse Practitioner Family
DX: J18.9 Pneumonia, unspecified organism (principal); E11.65 Type 2 diabetes mellitus with hyperglycemia; I10 Essential (primary) hypertension; E78.5 Hyperlipidemia, unspecified; J44.0 Chronic obstructive pulmonary disease with (acute) lower respiratory infection; Z79.899 Other long term (current) drug therapy
CPT/HCPCS: 71046; 80053; 84484; 85025; 85378; 96365; 96375; 99283; C9803; U0003; U0005

== ENCOUNTER → 2021-04-25 15:19 | Outpatient (CLI) | payer BC, SELFPAY ==
--- NOTE | 2021-04-25 15:24 | XR_ITS ---
FINAL REPORT CLINICAL HISTORY: foot pain FINDINGS: RIGHT FOOT: Three views of the right foot were obtained. There is no acute fracture or dislocation. There is mild degenerative change of the midfoot. There is no soft tissue abnormality. IMPRESSION: Mild degenerative change of the midfoot. Reviewed, Interpreted and Dictated by Chad Calderon III, MD Transcribed by Aris Olivo Authenticated by Chad Calderon III, MD on 04/25/2021 04:20:38 PM [facility]
--- NOTE | 2021-04-25 15:24 | XR_ITS ---
FINAL REPORT CLINICAL HISTORY: foot pain FINDINGS: LEFT FOOT Three views of the left foot demonstrate no acute fracture or dislocation. There are mild degenerative changes. There is a plantar calcaneal spur. There is a possible osteochondral lesion in the medial talar dome. IMPRESSION: Mild degenerative change with a possible osteochondral lesion in the medial talar dome. If indicated, MRI could further evaluate. Reviewed, Interpreted and Dictated by Chad Calderon III, MD Transcribed by Aris Olivo Authenticated by Chad Calderon III, MD on 04/25/2021 04:20:[address] [facility]
== END ==
LOC: LAB 15:20
PROVIDERS: PCP Nurse Practitioner Family; Visit Provider Nurse Practitioner Family
DX: M79.671 Pain in right foot (principal); M79.672 Pain in left foot; M54.50 Low back pain, unspecified
CPT/HCPCS: 73630; 87086

== ENCOUNTER → 2021-05-19 09:38 | Outpatient (CLI) | payer BC, SELFPAY ==
--- NOTE | 2021-05-19 09:47 | MR_ITS ---
FINAL REPORT CLINICAL HISTORY: abn xray. [id number] ago dropped something on top of foot and foot pain since.swelling on dorsal aspect of foot. prior x-ray 04-25-21 COMPARISON: 04/25/2021 FINDINGS: Multiplanar MR imaging of the left foot was performed without contrast. The bony structures are intact without evidence of fracture, bone bruise or marrow edema. There are localized signal abnormalities involving the medial and mid cuneiform of the proximal 1st and 2nd metatarsals likely related to degenerative subchondral cyst formation. There also hypertrophic changes at several intertarsal levels. The flexor and extensor tendons are intact. The musculature is intact. The plantar aponeurosis is intact. No soft tissue mass or cyst is identified. IMPRESSION: No fracture identified. Osteochondral lesions and degenerative changes of the intertarsal joints. Reviewed, Interpreted and Dictated by Drake Schumacher MD Transcribed by Yojana Reyes Authenticated by Drake Schumacher MD on 05/19/2021 12:18:07 PM [facility]
== END ==
LOC: RAD 09:39
PROVIDERS: PCP Nurse Practitioner Family; Visit Provider Nurse Practitioner Family
DX: M79.672 Pain in left foot (principal); M89.9 Disorder of bone, unspecified; M94.9 Disorder of cartilage, unspecified
CPT/HCPCS: 73718

== ENCOUNTER → 2021-07-30 14:37 | Outpatient (CLI) | payer BC, SELFPAY ==
--- NOTE | 2021-07-30 14:44 | US_ITS ---
FINAL REPORT CLINICAL HISTORY: postmenopausal bleeding COMPARISON: December 25, 2016 FINDINGS: Transvaginal sonographic images of the pelvis were obtained. The uterus measures 2.4 x 4.3 x 4.0 cm. The endometrium is thickened at 7 mm. A uterine fibroid is noted measuring up to 2.3 cm. The right ovary measures 2.9 cm in length and left ovary measures 2.0 cm in length. There is a probable small cyst in the left ovary. No mass is noted in the right ovary. Normal blood flow seen to the ovaries. Small follicles are present. There is no evidence of free fluid. IMPRESSION: Thickened endometrium, nonspecific. Uterine fibroid. Reviewed, Interpreted and Dictated by Chad Calderon III, MD Transcribed by Rosa Elena Marroquin Authenticated and [facility]
== END ==
LOC: RAD 14:39
PROVIDERS: PCP Nurse Practitioner Family; Visit Provider Obstetrics & Gynecology
DX: N95.0 Postmenopausal bleeding (principal)
CPT/HCPCS: 76830

== ENCOUNTER → 2021-08-24 13:27 | Outpatient (CLI) | payer BC, SELFPAY | PROVIDERS: Visit Provider Nurse Practitioner Family | DX: U07.1 COVID-19 (principal) | CPT/HCPCS: C9803; U0003; U0005 ==

== ENCOUNTER → 2021-09-16 15:14 | Outpatient (CLI) | payer BC, SELFPAY ==
--- NOTE | 2021-09-16 15:17 | MM_ITS ---
PROCEDURE INFORMATION: Exam: MG Bilateral Screening 3D Mammography Exam date and time: 09/16/2021 3:17 PM Age: 61 years old Clinical indication: Screening examination TECHNIQUE: Imaging protocol: Bilateral Screening tomosynthesis and 2D mammography including computer-aided detection (CAD) when performed. COMPARISON: 1. MG MM DIG SCREENING MAMM BI W/CAD 06/14/2020 9:32 AM 2. MG MM DIG MAMM DX UNILAT RT CAD 10/12/2019 11:37 AM FINDINGS: MAMMOGRAPHY: Breast composition: The breasts are almost entirely fatty. Mass: None. Architectural distortion: None. Calcifications: No suspicious calcifications. Asymmetric density: None. Skin thickening: None. Axillary adenopathy: None. IMPRESSION: No mammographic evidence of malignancy. Annual screening is recommended unless otherwise clinically indicated. ASSESSMENT: BI-RADS Category 1: Negative
== END ==
PROVIDERS: PCP Nurse Practitioner Family; Visit Provider Nurse Practitioner Family
DX: Z12.31 Encounter for screening mammogram for malignant neoplasm of breast (principal)
CPT/HCPCS: 77063; 77067

== ENCOUNTER 2021-11-02 13:20 | Emergency (ER) | payer BC, SELFPAY ==
[2021-11-02 13:21] VITALS: BP 161/96; PULSE 73; RESP 15; TEMP 36.7; O2SAT 96; BMI 42.2
--- NOTE | 2021-11-02 13:29 | PC.NURSE ---
Checked Glucose upon arrival 247; pt said at home her fsbg was 380
[2021-11-02 14:01] VITALS: BP 143/67; PULSE 64; RESP 20; O2SAT 96
--- NOTE | 2021-11-02 14:41 | PC.NURSE ---
pt ambulated to restroom to produce urine sample per order
[2021-11-02 14:44] LABS: Basophils # 0.1 K/mm3 (0-0.2); Basophils % 1.6 % (0.1-2.0); Chloride 100 mmol/L (98-107); Eosinophils # 0.2 K/mm3 (0.0-0.4); Eosinophils % 2.6 % (0.1-12.0); Hematocrit 43.7 % (37.0-47.0); Hemoglobin 14.5 g/dL (12.2-16.2); Lymphocytes # 2.1 K/mm3 (0.7-4.5); Lymphocytes % 30.9 % (10-50); Mean Corpuscular HGB Conc 33.2 g/dL (31.8-35.4); Mean Corpuscular Hemoglobin 32.2 pg (27.0-31.2); Mean Corpuscular Volume 96.9 fl (81-99); Mean Platelet Volume 9.7 fl (7.4-10.4); Monocytes # 0.3 K/mm3 (0.1-1.0); Monocytes % 4.5 % (1.7-9.3); Neutrophils # 4.2 K/mm3 (1.8-7.8); Neutrophils % 60.3 % (37.0-80.0); Platelet Count 277 K/mm3 (142-424); Potassium 4.2 mmoL/L (3.5-5.1); Red Blood Count 4.51 M/mm3 (4.20-5.40); Red Cell Distribution Width 12.7 % (11.5-17.5); Sodium 138 mmol/L (136-145); White Blood Count 6.9 K/mm3 (4.8-10.8)
[2021-11-02 14:47] LABS: Anion Gap 14.2 mEq/L (5-15); Blood Urea Nitrogen 12 mg/dl (7-17); Carbon Dioxide 28 mmol/L (22.0-30.0); Creatinine Clearance Estimated 86 mL/min (50-200); Estimated Glomerular Filt Rate 126 ml/min (>60); GFR (African American) 152 ML/MIN (>60)
[2021-11-02 14:48] LABS: Calcium 9.8 mg/dl (8.4-10.2); Glucose 250 mg/dl (74-100)
[2021-11-02 14:56] LABS: Acetone, Serum (Rapid) None Detected (None Detect)
--- NOTE | 2021-11-02 15:20 | HMH.EDGENADL ---
Discharge Plan Disposition Chief Complaint: Hyper/Hypoglycemia Prescriptions Prescriptions: No Action pravastatin 40 mg tablet See Rx Instructions .ROUTE .COMPLEX Qty: 90 3RF Dose Instruction: TAKE 1 TABLET BY MOUTH AT BEDTIME FOR CHOLESTEROL Rx Instructions: TAKE 1 TABLET BY MOUTH AT BEDTIME FOR CHOLESTEROL lisinopril 20 mg tablet See Rx Instructions .ROUTE .COMPLEX Qty: 90 3RF Dose Instruction: Take 1 tablet by mouth once daily Rx Instructions: Take 1 tablet by mouth once daily Breo Ellipta 200-25 mcg/dose blister with device See Rx Instructions .ROUTE .COMPLEX Qty: 60 3RF Dose Instruction: INHALE 1 PUFF BY MOUTH ONCE DAILY FOR ASTHMA Rx Instructions: INHALE 1 PUFF BY MOUTH ONCE DAILY FOR ASTHMA levothyroxine 175 mcg tablet See Rx Instructions .ROUTE .COMPLEX Qty: 90 3RF Dose Instruction: Take 1 tablet by mouth once daily Rx Instructions: Take 1 tablet by mouth once daily albuterol sulfate 90 mcg/actuation HFA aerosol inhaler See Rx Instructions .ROUTE .COMPLEX Qty: 18 0RF Dose Instruction: INHALE 1 PUFF BY MOUTH EVERY 4 TO 6 HOURS NEEDED FOR SHORTNESS OF BREATH FOR WHEEZING Rx Instructions: INHALE 1 PUFF BY MOUTH EVERY 4 TO 6 HOURS NEEDED FOR SHORTNESS OF BREATH FOR WHEEZING meclizine 25 MG tablet 25 mg PO Q6HP PRN (Reason: Dizziness) Qty: 30 0RF azithromycin 250 MG tablet 250 mg PO UD DOSE PK Qty: 6 0RF Rx Instructions: Take two (2) tablets today, then one (1) tablet days #2 thru #5 sitagliptin 100 MG tablet 100 mg PO DAILY Referrals Follow up/Referrals: Shakir Enriquez MD [Primary Care Provider] - See instructions Instructions Patient Instructions: DI for Hyperglycemia -- Adult Discharge ED Provider: Case Fitzpatrick General Adult HPI General Chief complaint: Hyper/Hypoglycemia Stated complaint: sugar is 380 Time Seen by Provider: 11/02/21 14:25 Mode of Arrival: Ambulatory Source of Information: Patient Limitations: No Limitations Description of Symptoms (Recalled from ER Triage Doc. by RN): Pt states that glucose was elevated at home. Reports a reading of 380 and then she took her Januvia [employer]. History of Present Illness HPI narrative: Patient states that she has been having problems with her blood sugar for over a year. She says it has been running over 200 constantly. She says that she is on Januvia, she was tried on Trulicity for a time but could not afford it and after samples ran out she resumed Januvia. She says that today her blood sugar was 380 and that caused her to panic. She says that she was feeling woozy and blurry headed. She says that is how she feels when her blood sugar gets very high. She says it is not been as high as 380 in the past. She currently is taking a leftover antibiotic for sinus infection and has irritable bowel syndrome, but otherwise denies any acute illness. She took Januvia before coming to the emergency department. Related Data Home Medications Medication Instructions Recorded Confirmed sitagliptin 100 mg tablet 100 mg PO DAILY Diabetes 05/23/20 08/08/21 Previous Rx's Medication Instructions Recorded pravastatin 40 mg tablet See Rx Instructions .Route 07/10/20 .COMPLEX #90 tabs lisinopril 20 mg tablet See Rx Instructions .Route 07/15/20 .COMPLEX #90 tabs fluticasone furoate 200 See Rx Instructions .Route 08/13/20 mcg-vilanterol 25 mcg/dose .COMPLEX #60 ea inhalation powder (Breo Ellipta) meclizine 25 mg tablet 25 mg PO Q6HP PRN Dizziness #30 01/12/21 tabs levothyroxine 175 mcg tablet See Rx Instructions .Route 01/22/21 .COMPLEX #90 tabs azithromycin 250 mg tablet 250 mg PO UD DOSE PK #6 tabs 08/24/21 albuterol sulfate 90 mcg/actuation See Rx Instructions .Route 10/01/21 aerosol inhaler .COMPLEX #18 grams Allergies Allergy/AdvReac Type Severity Reaction Status Date / Time amoxicillin [From Augmentin] Allergy Intermediate
[2021-11-02 15:28] LABS: Microscopic, Urine URINE MICROSCOPIC (MICROSCOPIC)
[2021-11-02 15:30] LABS: Appearance,Urine CLEAR (Clear); Bilirubin,Urine Negative (Negative); Blood, Urine Negative (Negative); Color,Urine YELLOW (Yellow); Glucose,Urine (UA) 3+ (Negative); Ketones,Urine Negative (Negative); Leukocyte Esterase,Urine Negative (Negative); Nitrate,Urine Negative (Negative); Protein,Urine Negative (Negative); Specific Gravity, Urine >= 1.030 (1.005-1.030); Urobilinogen,Urine 0.2 EU/dl (0.2)
[2021-11-02 15:50] LABS: Bacteria,Urine 1+ /lpf
[2021-11-02 16:05] LABS: Hemoglobin A1C 10.2 % (4.0-6.0)
[2021-11-02 16:16] VITALS: BP 159/81; PULSE 79; RESP 16; TEMP 36.7; O2SAT 98
[2021-11-02 20:10] LABS: POC Glucose,Bedside 247 (70-110)
== END 2021-11-02 16:19 | disposition home or self-care (01) ==
PROVIDERS: Emergency Provider Emergency Medicine; PCP Internal Medicine Adolescent Medicine
DX: E11.65 Type 2 diabetes mellitus with hyperglycemia (principal); Z79.84 Long term (current) use of oral hypoglycemic drugs; Z88.1 Allergy status to other antibiotic agents; Z88.6 Allergy status to analgesic agent; E03.9 Hypothyroidism, unspecified; D64.9 Anemia, unspecified
CPT/HCPCS: 80048; 81001; 82009; 82962; 83036; 85025; 96365; 99284

== ENCOUNTER → 2022-02-20 06:07 | Outpatient (CLI) | payer BC, SELFPAY ==
--- NOTE | 2022-02-20 | CA_ITS ---
APPROVED REPORT Exam: Exercise Treadmill Technologist: Sara Cabrera, Ht: 5 ft 0 in Wt: 214 lbs BSA: 1.92 m2 HR: 61 bpm BP: 151/74 mmHg Rhythm: NSR Medical History Medical History: HTN, Hyperlipidemia, Diabetes Medications: Lisinopril,,,,, Levothyroxine,,,,, Pravastatin,,,,, Albuterol,,,,, Meclizine,,,,, BREo,,,,, Sitagliptin,,,,, Cardiac Risk Factors: HTN, Hyperlipidemia, Diabetes , FHX of CAD, Smoking Stress Test Details Test: Junito HR Resting HR: 71 bpm Max Heart Rate (APMHR): 159.576500 bpm Max HR Achieved: 139 bpm Target HR (85% APMHR): 135.234265 bpm % of APMHR: 87.42 Recovery HR: 82 bpm BP Resting BP: 151/74 mmHg Max BP: 218/78 mmHg Recovery BP: 176.0/81.0 mmHg ECG Resting ECG: NSR Clinical Reason for Termination: Dyspnea Exercise duration: 07:00 min Highest Stage Achieved: Exercise capacity: 10.1 METs Stress ECG Conclusion PT WALKED 7 MINUTES 10.1 METS MAX HR: 139 % OF PM: 103 MAX BP: 218/78 TEST STOPPED DUE TO: DYSPNEA NO CP <1.[address] SEGMENT CHANGES NEGATIVE STRESS HTN RESPONSE (OFF MEDS) Test Summary REST . . . . . . . Standing REST . . . . . . . Sitting REST 18:56 0.0 0.0 71 . 151/ 74 . . Stage 1 01:00 10.0 1.7 90 . . . . Stage 1 02:00 10.0 1.7 100 . . . . Stage 1 03:00 10.0 1.7 105 . 150/ 78 . . Stage 2 01:00 12.0 2.5 113 . . . . Stage 2 02:00 12.0 2.5 120 . . . . Stage 2 03:00 12.0 2.5 124 . 160/ 80 . . Stage 3 01:00 14.0 3.4 138 . . . Stop exercise at 07:00 RECOVERY 01:00 0.0 0.0 119 . . . . RECOVERY 02:00 0.0 0.0 88 . . . . RECOVERY 03:00 0.0 0.0 84 . 218/ 78 . . RECOVERY 04:00 0.0 0.0 87 . 175/ 74 . . RECOVERY 05:00 0.0 0.0 80 . 175/ 74 . . RECOVERY 05:28 0.0 0.0 80 . 176/ 81 . . Electronically signed by : Eugenio Schwartz MD 02/20/2022 13:00:06
--- NOTE | 2022-02-20 06:42 | NM_ITS ---
APPROVED REPORT Exam: Nuclear Stress Test Indication: chest pain..short of breath..fatigue Patient Location: Outpatient Stress Tech: Sara Cabrera PR Tech:SUSY Tilley RT(R)(N) Ht: 5 ft 0 in Wt: 185 lbs Bra Size: 36d HR: 71 bpm BP: 151/74 mmHg BSA: 1.81 m2 TID: 1.15 History: chest pain..short of breath..fatigue Procedure: Patient exercised on Junito protocol 7 minutes and sec, resting heart rate 71 bpm, resting blood pressure 151/74 mmHg, with exercise maximum heart rate achived was 139 bpm which is 87 % of the maximum predicted heart rate and blood pressure was 218/78 mmHg. Test was stopped due to SOA. Patient denied any complaint of chest pain. Patient has Good exercise capacity, achieved 10.0 METs of workload on treadmill, the blood pressure response to exercise was Hypertensive. Electrocardiogram Resting electrocardiogram shows sinus rhythm nonspecific T wave changes, with exercise there is less than 1.[address] segment depression noted from the baseline EKG. The EKG portion of the exercise Myoview was nondiagnostic due to baseline abnormal EKG. Cardiac Stress and Resting SPECT Images: Cardiac Stress and Resting SPECT images were obtained using technetium 99m Myoview 29.5 mCi stress and 10.27 mCi at rest. Gated SPECT for analysis of segmental wall motion and calculation of the ejection fraction also done. Prone images were also obtained. Cardiac stress and rest SPECT images show uniform myocardial activity without segmental perfusion abnormality, computer derived ejection fraction is over 65% with no regional wall motion abnormality, right ventricle is mildly enlarged with normal contractility. Conclusion: 1. The EKG portion of the exercise Myoview is nondiagnostic due to baseline abnormal EKG, patient has good exercise capacity achieved 10 METS of workload on treadmill, the blood pressure response to exercise was hypertensive, test was stopped due to shortness of breath patient did not complain chest pain. 2. No scintigraphic evidence of reversible ischemia seen, compared right ejection fraction is over 65% with no regional wall motion abnormality, right ventricle is mildly enlarged with normal contractility. Electronically signed by : Eugenio Schwartz MD 02/20/2022 13:03:25
== END ==
LOC: RAD 06:09
PROVIDERS: PCP Internal Medicine Adolescent Medicine; Visit Provider Nurse Practitioner Family
DX: R06.02 Shortness of breath (principal); R07.2 Precordial pain
CPT/HCPCS: 78452; 93017; A9502

== ENCOUNTER → 2022-09-15 15:18 | Outpatient (POV) | payer BC, SELFPAY | PROVIDERS: Visit Provider Dermatology | DX: Z00.00 Encounter for general adult medical examination without abnormal findings (principal) ==

== ENCOUNTER → 2022-12-12 10:10 | Outpatient (CLI) | payer BC, SELFPAY ==
[2022-12-12 11:07] LABS: Alanine Aminotransferase 27 U/L (12-78); Albumin Level 4.1 g/dl (3.5-5.0); Albumin/Globulin Ratio 1.4 (1.1-1.8); Alkaline Phosphatase 78 U/L (38-126); Anion Gap 12.4 mEq/L (5-15); Aspartate Amino Transferase 26 U/L (14-36); Bilirubin,Total 0.4 mg/dl (0.2-1.3); Blood Urea Nitrogen 16 mg/dl (7-17); Calcium 9.3 mg/dl (8.4-10.2); Carbon Dioxide 24 mmol/L (22.0-30.0); Chloride 105 mmol/L (98-107); Chol/HDL Ratio 3.6 (1-3.5); Cholesterol 241 mg/dl (140-200); Estimated Glomerular Filt Rate 125 ml/min (>60); GFR (African American) 152 ML/MIN (>60); Glucose 179 mg/dl (74-100); HDL Cholesterol 67 mg/dl (40-60); Potassium 4.4 mmoL/L (3.5-5.1); Sodium 137 mmol/L (136-145); Total Protein,Serum 7.1 g/dl (6.3-8.2); Triglycerides 122 mg/dl (30-150); VLDL Cholesterol 24 mg/dL (0-40)
[2022-12-12 11:17] LABS: Direct LDL Cholesterol 142.28 mg/dL (100-129)
[2022-12-12 11:32] LABS: Hemoglobin A1C 7.1 % (4.0-6.0)
== END ==
PROVIDERS: PCP Nurse Practitioner Family; Visit Provider Nurse Practitioner Family
DX: Z00.00 Encounter for general adult medical examination without abnormal findings (principal); E11.42 Type 2 diabetes mellitus with diabetic polyneuropathy; E03.9 Hypothyroidism, unspecified; Z79.84 Long term (current) use of oral hypoglycemic drugs; Z79.899 Other long term (current) drug therapy
CPT/HCPCS: 36415; 80053; 80061; 83036; 84443

== ENCOUNTER → 2023-01-05 09:08 | Outpatient (POV) | payer BC, SELFPAY | PROVIDERS: Visit Provider Dermatology | DX: Z00.00 Encounter for general adult medical examination without abnormal findings (principal) ==

== ENCOUNTER 2023-03-23 10:04 | Outpatient (CLI) | payer BC, SELFPAY ==
--- NOTE | 2023-03-23 10:08 | MM_ITS ---
PROCEDURE INFORMATION: Exam: MG Bilateral Screening 3D Mammography Exam date and time: 03/23/2023 9:55 AM Age: 63 years old Clinical indication: Screening examination TECHNIQUE: Imaging protocol: Bilateral Screening tomosynthesis and 2D mammography including computer-aided detection (CAD) when performed. COMPARISON: 1. MG MM DIG SCREENING MAMM BI W/CAD 09/16/2021 3:17 PM 2. MG MM DIG SCREENING MAMM BI W/CAD 06/14/2020 9:32 AM FINDINGS: MAMMOGRAPHY: Breast composition: There are scattered areas of fibroglandular density. Mass: None. Architectural distortion: None. Calcifications: No suspicious calcifications. Asymmetric density: None. Skin thickening: None. Axillary adenopathy: None. IMPRESSION: No mammographic evidence of malignancy. Annual screening is recommended unless otherwise clinically indicated. ASSESSMENT: BI-RADS Category 1: Negative
== END 2023-03-23 23:59 ==
LOC: RAD 10:04
PROVIDERS: PCP Nurse Practitioner Family; Visit Provider Nurse Practitioner Family
DX: Z12.31 Encounter for screening mammogram for malignant neoplasm of breast (principal)
CPT/HCPCS: 77063; 77067

== ENCOUNTER 2023-12-30 11:46 | Outpatient (CLI) | payer MEDICAID, SELFPAY ==
[2023-12-30 15:55] VITALS: BMI 40.5
== END 2023-12-30 23:59 | disposition home or self-care (01) ==
LOC: DIETICIAN 11:47
PROVIDERS: PCP Nurse Practitioner Family; Visit Provider Nurse Practitioner Family
DX: E11.42 Type 2 diabetes mellitus with diabetic polyneuropathy (principal)
CPT/HCPCS: 97802

== ENCOUNTER 2024-01-07 11:47 | Emergency (ER) | payer MEDICAID, SELFPAY ==
--- NOTE | 2024-01-07 13:51 | ED_ITS ---
Discharge Plan Disposition Patient Disposition: Home, Self-Care Condition: Good Prescriptions Prescriptions: New azithromycin [Zithromax] 250 mg tablet 250 mg PO UD DOSE PK Qty: 6 0RF Rx Instructions: Take two (2) tablets today, then one (1) tablet days #2 thru #5 benzonatate 100 mg capsule 100 mg PO TIDP PRN (Reason: Cough) Qty: 30 0RF No Action pravastatin 40 mg tablet See Rx Instructions .ROUTE .COMPLEX Qty: 90 3RF Dose Instruction: TAKE 1 TABLET BY MOUTH AT BEDTIME FOR CHOLESTEROL Rx Instructions: TAKE 1 TABLET BY MOUTH AT BEDTIME FOR CHOLESTEROL lisinopril 20 mg tablet See Rx Instructions .ROUTE .COMPLEX Qty: 90 3RF Dose Instruction: Take 1 tablet by mouth once daily Rx Instructions: Take 1 tablet by mouth once daily Breo Ellipta 200-25 mcg/dose blister with device See Rx Instructions .ROUTE .COMPLEX Qty: 60 3RF Dose Instruction: INHALE 1 PUFF BY MOUTH ONCE DAILY FOR ASTHMA Rx Instructions: INHALE 1 PUFF BY MOUTH ONCE DAILY FOR ASTHMA levothyroxine 175 mcg tablet See Rx Instructions .ROUTE .COMPLEX Qty: 90 3RF Dose Instruction: Take 1 tablet by mouth once daily Rx Instructions: Take 1 tablet by mouth once daily albuterol sulfate 90 mcg/actuation HFA aerosol inhaler See Rx Instructions .ROUTE .COMPLEX Qty: 18 0RF Dose Instruction: INHALE 1 PUFF BY MOUTH EVERY 4 TO 6 HOURS NEEDED FOR SHORTNESS OF BREATH FOR WHEEZING Rx Instructions: INHALE 1 PUFF BY MOUTH EVERY 4 TO 6 HOURS NEEDED FOR SHORTNESS OF BREATH FOR WHEEZING meclizine 25 MG tablet 25 mg PO Q6HP PRN (Reason: Dizziness) Qty: 30 0RF azithromycin 250 MG tablet 250 mg PO UD DOSE PK Qty: 6 0RF Rx Instructions: Take two (2) tablets today, then one (1) tablet days #2 thru #5 glipizide 10 mg tablet extended release 24hr 10 mg PO DIRECTED Patient Comments: TAKE ONE TABLET BY MOUTH EVERY DAY albuterol sulfate [Ventolin HFA] 90 mcg/actuation HFA aerosol inhaler 90 mcg INHALATION DIRECTED Patient Comments: INHALE TWO PUFFS BY MOUTH EVERY 4 HOURS NEEDED rosuvastatin 20 mg tablet 20 mg PO DIRECTED Patient Comments: TAKE ONE TABLET BY MOUTH EVERY DAY Trelegy Ellipta 100-62.5-25 mcg blister with device 100 inh INHALATION DIRECTED Patient Comments: INHALE 1 PUFF BY MOUTH ONCE DAILY Ozempic 0.25 mg or 0.5 mg (2 mg/3 mL) pen injector 0.25 mg SQ DIRECTED Patient Comments: INJECT 0.25MG SUBCUTANEOUSLY ONCE A WEEK FOR 4 WEEKS THEN INCREASE TO 0.5MG WEEKLY sitagliptin phosphate 100 MG tablet 100 mg PO DAILY Referrals Follow up/Referrals: Dennise Hadley APRN [Primary Care Provider] - See instructions Activity Restrictions/Add. Instructions Additional Instructions/Restrictions: Drink plenty of fluids. Take tylenol or ibuprofen for pain or fever. Take the medications as directed. Follow up with your regular doctor. GO TO THE ER FOR ANY WORSENING SYMPTOMS Clinical Impressions Clinical Impression: Sinusitis, Bronchitis Instructions Patient Instructions: Sinusitis, DI for Sinusitis Print Language Print Language: Slovenian Discharge ED [place]in Mccord [facility] [place] General Stated complaint: congestion, sneezing, SOA, body aches, H/a Time Seen by Provider: 01/07/24 13:51 Related Data Home Medications ?Medication ?Instructions ?Recorded ?Confirmed sitagliptin phosphate 100 mg tablet 100 mg PO DAILY Diabetes 05/23/20 08/08/21 albuterol sulfate 90 mcg/actuation 90 mcg inhalation DIRECTED 01/07/24 01/07/24 aerosol inhaler (Ventolin HFA) fluticasone fur. 100 mcg-umeclid 100 inh inhalation DIRECTED 01/07/24 01/07/24 62.5 mcg-vilant 25 mcg inhalat.powder (Trelegy Ellipta) glipizide 10 mg tablet, extended 10 mg PO DIRECTED 01/07/24 01/07/24 release 24 hr rosuvastatin 20 mg tablet 20 mg PO DIRECTED 01/07/24 01/07/24 semaglutide 0.25 mg or 0.5 mg (2 0.25 mg SQ DIRECTED 01/07/24 01/07/24 mg/3 mL) subcutaneous pen injector (Ozempic) Previous Rx's ?Medication ?Instructions ?Recorded pravastatin 40 mg tablet See Rx Instructions .Route 07/10/20 .COMPLEX #90 tabs lisinopril 20 mg tablet See Rx Instructions .Route 07/15/20 .COMPLEX #90 tabs fluticasone furoate 200 See Rx Instructions .Route 08/13/20 mcg-vilanterol 25 mcg/dose .COMPLEX #60 ea inhalation powder (Breo Ellipta) meclizine 25 mg tablet 25 mg PO Q6HP PRN Dizziness #30 01/12/21 tabs levothyroxine 175 mcg tablet See Rx Instructions .Route 01/22/21 .COMPLEX #90 tabs azithromycin 250 mg tablet 250 mg PO UD DOSE PK #6 tabs 08/24/21 albuterol sulfate 90 mcg/actuation See Rx Instructions .Route 06/15/22 aerosol inhaler .COMPLEX #18 grams azithromycin 250 mg tablet 250 mg PO UD DOSE PK #6 tabs 01/07/24 (Zithromax) benzonatate 100 mg capsule 100 mg PO TIDP PRN Cough #30 caps 01/07/24 Allergies Allergy/AdvReac Type Severity Reaction Status Date / Time amoxicillin (From Augmentin) Allergy Intermediate Verified 08/08/21 10:24 clavulanic acid (From Allergy Intermediate Verified 08/08/21 10:24 Augmentin) meloxicam Allergy Intermediate Verified 08/08/21 10:24 PFSH PFSH Disclaimer: The information contained in this section may have been updated after the patient was seen, as this information can be updated by other users. Social History Smoking Status: Never smoker alcohol intake: never substance use type: denies use current occupational status: employed household members: significant other housing: house current occupation: [employer] current occupational exposures/hazards: Yes caffeine: Yes ROS Obtained: Yes All systems reviewed & no additional complaints except as documented Constitutional Constitutional: Reports poor appetite Eyes Eyes: Reports system reviewed and no additional complaints, except as documented ENT Ears, Nose, Mouth, and Throat: Reports as per HPI Cardiovascular Cardiovascular: Reports system reviewed and no additional complaints, except as documented and Denies chest pain Respiratory Respiratory: Denies shortness of breath, Denies chest congestion, Reports cough, Denies stridor and Denies wheezing Gastrointestinal Gastrointestingal: Reports system reviewed and no additional complaints, except as documented; Denies abdominal pain, diarrhea or vomiting Musculoskeletal Musculoskeletal: Reports system reviewed and no additional complaints, except as documented and Denies arthralgias Integumentary/Breasts Skin/Breast: Reports system reviewed and no additional complaints, except as documented and Denies rash Neurologic Neurologic: Denies paresthesias Allergic/Immunologic Allergic/Immunologic: Denies wheezing Physical Exam General General appearance: alert and in no apparent distress Eye Eye exam: Present normal appearance, PERRL and EOMI ENT ENT exam: Present mucous membranes moist and normal external ear exam Expanded ENT Exam External ear exam: Present normal external inspection TM/Canal exam: Bilateral TM: erythema and bulging Nose exam: Absent sinus tenderness Nasal speculum exam: Bilateral: normal Mouth exam: Present normal external inspection; Absent drooling Teeth exam: Present normal inspection Throat exam: Present tonsillar erythema and tonsillomegaly Neck Neck exam: Present normal inspection, full ROM and trachea midline; Absent tenderness, lymphadenopathy or thyromegaly Chest Chest inspection: Present normal inspection and symmetric chest wall rise; Absent tenderness or rash Respiratory Respiratory exam: Present normal lung sounds bilaterally; Absent respiratory distress, wheezes, stridor or accessory muscle use Cardiovascular Cardiovascular exam: Present regular rate, normal rhythm and normal heart sounds Abdominal Exam Abdominal exam: Present soft; Absent distention, tenderness, guarding, rebound or rigidity Extremities Exam Extremities exam: Present normal inspection, full ROM and normal capillary refill; Absent tenderness or calf tenderness Back Exam Back exam: Present normal inspection and full ROM; Absent tenderness Neurological Exam Neurological exam: Present alert and oriented X3 Psychiatric Psychiatric exam: Present normal affect and normal mood Skin Skin exam: Present warm, dry, intact and normal color Lymphatic Lymphatic Findings: no adenopathy Medical Decision Making Medical Records Medical records reviewed: No I reviewed the patient's medical records. Screening: Per USPSTF and CDC recommendations, given the prevalence of disease in our region, it is our hospital?s policy to screen for HIV and viral Hepatitis for all patients aged 18 and over and those with ongoing risk factors. Atif Inquiry Pt receiving controlled substance: No
[2024-01-07 13:52] VITALS: BP 156/68; PULSE 71; RESP 20; TEMP 36.6; O2SAT 96; BMI 39.6
[2024-01-07 14:36] VITALS: BP 156/68; PULSE 71; RESP 20; TEMP 36.6
== END 2024-01-07 14:37 | disposition home or self-care (01) ==
PROVIDERS: Emergency Provider Nurse Practitioner Family; PCP Nurse Practitioner Family
DX: J01.90 Acute sinusitis, unspecified (principal); J20.9 Acute bronchitis, unspecified; R06.7 Sneezing; R05.9 Cough, unspecified; R51.9 Headache, unspecified; R63.8 Other symptoms and signs concerning food and fluid intake
CPT/HCPCS: 99212; G0381

== ENCOUNTER 2024-05-02 13:48 | Outpatient (CLI) | payer MEDICAID, SELFPAY | END 2024-05-02 23:59 | disposition home or self-care (01) | LOC: LAB.DROPOF 05-03 13:54 | PROVIDERS: PCP Nurse Practitioner; Visit Provider Nurse Practitioner | DX: R30.0 Dysuria (principal) | CPT/HCPCS: 87086 ==

== ENCOUNTER 2024-05-04 08:13 | Day surgery (SDC) | payer MEDICAID, SELFPAY ==
[2024-05-02 16:14] VITALS: BMI 39.4
[2024-05-04] VITALS (7 sets, daily range): BP systolic 109–164; BP diastolic 49–86; PULSE 61–69; RESP 16–18; TEMP 35.8–36.4; O2SAT 96–100
[2024-05-04] MEDS: LACTATED RINGERS 1000ML 1,000 ML 50 ML IV (09:04)
[2024-05-04 09:14] LABS: POC Glucose,Bedside 181 (70-110)
--- NOTE | 2024-05-04 09:32 | EXP.ANES.CKL ---
[facility] Disclaimer: The information contained in this section may have been updated after the patient was seen, as this information can be updated by other users. Medical History (Updated 05/04/24 @ 09:03 by Nelia Alberto RN) History of COVID-19 Asthma Skin cancer UTI symptoms History of thyroid disease COPD (chronic obstructive pulmonary disease) Diabetes Surgical History (Updated 05/04/24 @ 09:02 by Nelia Alberto RN) History of removal of ovarian cyst H/O dilation and curettage H/O thyroidectomy Family History (Updated 05/04/24 @ 09:02 by Nelia Alberto RN) Other Asthma Breast cancer Diabetes Heart attack Hypertension Skin cancer Social History (Updated 05/04/24 @ 09:03 by Nelia Alberto RN) Smoking Status: Former smoker tobacco type: cigarettes alcohol intake: never substance use type: denies use current occupational status: retired Travel in the last 8 weeks: None household members: significant other housing: house current occupation: [employer] current occupational exposures/hazards: Yes caffeine: Yes Have you lived/traveled outside [place] in past 30 days?: No Contact w/someone who lives/traveled outside US past 30 days?: No Exposure to someone with infectious disease in past 14 days?: No Do you have a fever (greater than 100.4 F or 38 C)?: No Have you tested positive for COVID-19: No Exposed to someone with COVID-19 in past 14 days?: No Do you have a sore throat?: No Do you have a cough?: No Do you have any weakness?: No Are you experiencing any nausea/vomitting?: No Do you have any diarrhea?: No Are you experiencing any unusual bleeding?: No Do you have any muscle aches/pain?: No Do you have any abdominal pain?: No Are you experiencing loss of taste or smell?: No [facility] Anesthesia Checklist Patient Identification Patient Identification: Arm Band Structural Data Admitted From: Home Planned Operative Procedure/s: Colonoscopy Consent for Planned Operative Procedure(s) Verified: Yes Verified Documents: Surgical Consent and History and Physical NPO Status Verified Time NPO: 00:00 Additional verifications Anesthesia Reactions: No Hx Blood Transfusions: No Blood Transfusion Reaction: No Airway Assessment Mallampati Score:: Class II C-Spine Mobility Assessed: Yes TMJ Mobility Assessed: Yes Dentition: Good Dentition Neurological Assessment Level of Consciousness: Awake, Alert and Appropriate Anesthesia Plan Anesthesia Risk discussed: Yes Anesthesia Plan: Verified ASA Class: III Anesthesia Type: MAC
--- NOTE | 2024-05-04 10:12 | P.HP_ITS ---
History of Present Illness *Admission Date: 05/04/24 *Reason for visit:: Positive Cologuard *History of present illness: Mrs. Tovar is a 64-year-old female who is here for screening colonoscopy. She did have a positive Cologuard. She did have a colonoscopy in May 2020 and had a cecal sessile serrated adenoma removed. The examination is deemed medically necessary for screening colonoscopy. The patient has been seen, interviewed and examined prior to the procedure by both myself and the anesthesia provider. [facility] Disclaimer: The information contained in this section may have been updated after the patient was seen, as this information can be updated by other users. Medical History (Updated 05/04/24 @ 10:24 by Dino Honeycutt II, MD) History of COVID-19 Asthma Skin cancer UTI symptoms History of thyroid disease COPD (chronic obstructive pulmonary disease) Diabetes Surgical History (Updated 05/04/24 @ 09:02 by Nelia Alberto RN) History of removal of ovarian cyst H/O dilation and curettage H/O thyroidectomy Family History (Updated 05/04/24 @ 09:02 by Nelia Alberto RN) Other Asthma Breast cancer Diabetes Heart attack Hypertension Skin cancer Social History (Updated 05/04/24 @ 09:03 by Nelia Alberto RN) Smoking Status: Former smoker tobacco type: cigarettes alcohol intake: never substance use type: denies use current occupational status: retired Travel in the last 8 weeks: None household members: significant other housing: house current occupation: [employer] current occupational exposures/hazards: Yes caffeine: Yes Have you lived/traveled outside US in past 30 days?: No Contact w/someone who lives/traveled outside US past 30 days?: No Exposure to someone with infectious disease in past 14 days?: No Do you have a fever (greater than 100.4 F or 38 C)?: No Have you tested positive for COVID-19: No Exposed to someone with COVID-19 in past 14 days?: No Do you have a sore throat?: No Do you have a cough?: No Do you have any weakness?: No Are you experiencing any nausea/vomitting?: No Do you have any diarrhea?: No Are you experiencing any unusual bleeding?: No Do you have any muscle aches/pain?: No Do you have any abdominal pain?: No Are you experiencing loss of taste or smell?: No Other Medical History Have you received the Flu Vaccine for this season: Yes Have you received the Pneumonia Vaccine: Yes Review of Systems Review of Systems Review of systems (narrative): Negative *Cardiovascular Comments: Negative *Gastrointestinal Comments: Negative *Genitourinary Comments: Negative *Musculoskeletal Comments: Negative *Neurologic Comments: Negative Meds Home Medications and Allergies Home Medications ?Medication ?Instructions ?Recorded ?Confirmed ?Type sitagliptin phosphate 100 mg 100 mg PO DAILY Diabetes 05/23/20 05/04/24 History tablet (Januvia) albuterol sulfate 90 mcg/actuation 90 mcg inhalation DIRECTED 01/07/24 05/04/24 History aerosol inhaler (Ventolin HFA) fluticasone fur. 100 mcg-umeclid 1 inh inhalation DIRECTED 01/07/24 05/04/24 History 62.5 mcg-vilant 25 mcg inhalat.powder (Trelegy Ellipta) glipizide 10 mg tablet, extended 10 mg PO DIRECTED 01/07/24 05/04/24 History release 24 hr rosuvastatin 20 mg tablet 20 mg PO DIRECTED 01/07/24 05/04/24 History albuterol sulfate 90 mcg/actuation 90 mcg inhalation DAILY 05/02/24 05/04/24 History aerosol inhaler empagliflozin 25 mg tablet 25 mg PO DAILY 05/02/24 05/04/24 History (Jardiance) levothyroxine 175 mcg tablet 150 mcg PO DAILY 05/02/24 05/04/24 History lisinopril 20 mg tablet 20 mg PO DAILY 05/02/24 05/04/24 History pravastatin 40 mg tablet 40 mg PO DAILY 05/02/24 05/04/24 History New Prescriptions to Start Prescriptions: Allergies Allergy/AdvReac Type Severity Reaction Status Date / Time amoxicillin (From Augmentin) Allergy Intermediate Nausea Verified 05/04/24 08:48 clavulanic acid (From Allergy Intermediate Rash Verified 05/04/24 08:48 Augmentin) meloxicam Allergy Intermediate Swelling Verified 05/04/24 08:48 of Lip/Tongue/Throat Exam Data for Last 24 hours Vital signs and Labs for Last 24 Hours: Temp Pulse Resp BP Pulse Ox O2 Del Method 97.6 F 69 18 164/85 H 97 Room Air 05/04/24 08:53 05/04/24 08:53 05/04/24 08:53 05/04/24 08:53 05/04/24 08:53 05/04/24 08:53 Laboratory Results - last 24 hr 05/04/24 08:53: POC Glucose 181 H I & O for Last 24 hours: Intake & Output 05/01/24 05/02/24 05/03/24 05/04/24 23:59 23:59 23:59 23:59 Weight 202 lb *Routine HEENT Exam Head: Present normocephalic Eye: Present EOMI and PERRL ENT: Present mucous membranes moist *Routine Neck Exam Neck: Present supple *Routine Respiratory Exam Respiratory: Present CTA bilaterally *Routine Cardiovascular Exam Cardiovascular: Present RRR *Routine Abdominal Exam Abdominal: Present soft and normoactive bowel sounds; Absent tenderness *Routine Rectal Exam Rectal:: deferred *Routine Genitalia Exam Genitalia:: deferred *Routine Extremities Exam Extremities: Absent cyanosis, clubbing or edema *Routine Skin Exam Skin: Present warm; Absent rash *Routine Neurological Exam Neurological: Present alert and oriented X3 Assessment and Plan *Assessment and plan (1) Positive colorectal cancer screening using Cologuard test: Status: Acute Category: Medical Code(s): R19.5 - Other fecal abnormalities (2) Personal history of adenomatous and serrated colon polyps: Status: Acute Category: Medical Code(s): Z86.0101 - Personal history of adenomatous and serrated colon polyps Plan A/P: 1. Positive Cologuard is the preprocedural diagnosis. The patient will be anesthetized/sedated using MAC sedation. The patient has been seen and ex amined. Cardiac and lung assessment prior to the examination is stable. Proceed with planned screening colonoscopy
--- NOTE | 2024-05-04 10:24 | P.PCN_ITS ---
[facility] Procedure Note Date: 05/04/24 Time: 10:38 Procedure Note:: Colonoscopy Procedure Report: Colonoscopy with cold snare polypectomy Endoscopist: Dino Honeycutt II, MD Referring physician: JARED Alberto Date of Procedure: May 04, 2024 Equipment: Olympus 190 variable stiffness pediatric colonoscope Sedation: MAC sedation Indication: Mrs. Tovar is a 64-year-old female who is here for screening colonoscopy secondary to a positive Cologuard. She did have a colonoscopy with oh in May 2020 and had a cecal sessile serrated adenoma. The patient reports no weight loss or family history of colon cancer. She reports regular bowel function but has had some longstanding alternating IBS with diarrhea and constipation. She also notes occasional spotting of blood on the toilet tissue from internal hemorrhoids. She does get some bloating and lower abdominal discomfort. Procedure: Prior to the procedure, a history and physical exam was performed, and patient's medications and allergies were reviewed. The risks, benefits and alternatives of the sedation and procedure were discussed with the patient. All questions were answered and informed consent was obtained. The patient was brought to the procedure room. Patient identification and proposed procedure were verified by the physician and the nurse. The patient was placed in a left lateral decubitus position and the scope was passed under direct vision. Throughout the procedure, the patient's blood pressure, pulse, and oxygen saturations were monitored continuously. The colonoscopy was accomplished without difficulty. The patient tolerated the procedure well. Findings: On digital rectal examination there was normal rectal tone. There were no external hemorrhoids. The colonoscope was introduced through the anal canal to the rectum and advanced to the cecum. The ileocecal valve and appendiceal orifice were identified. The scope was advanced a short distance into the ileum which appeared grossly normal. The scope was then withdrawn into the colon. There were 2 polyps (transverse x 1 (4 mm) and sigmoid x 1 (3 mm)). Both of these were removed via cold snare polypectomy. The remaining cecum, ascending and transverse colon and mucosa were grossly normal. There were very mildly scattered diverticuli throughout the descending and sigmoid colon (LEFT colon). The rectum itself was normal. Upon retroflexion within the rectum there were grade 1-2 internal hemorrhoids. The preparation was excellent throughout with Lopeno Preparation Score of 9. The cecal time was 12 minutes. Impression: 1. Diminutive colonic polyps x 2 2. Mild left-sided diverticulosis 3. Grade 1-2 internal hemorrhoids Plan: I will follow-up the polyp histology and recommend repeat surveillance colonoscopy again in 7 years if the polyps are adenomatous. I would encourage fiber supplementation or fiber bowel regimen on a long-term daily maintenance basis.
== END 2024-05-04 11:25 | disposition home or self-care (01) ==
PROVIDERS: PCP Nurse Practitioner Family; Visit Provider Internal Medicine Gastroenterology
PROC: 0DJD8ZZ Inspection of Lower Intestinal Tract, Via Natural or Artificial Opening Endoscopic (ICD-10-PCS; CPT 45378; principal; 2024-05-04 10:00)
DX: K63.5 Polyp of colon (principal); K57.30 Diverticulosis of large intestine without perforation or abscess without bleeding; K64.8 Other hemorrhoids; R19.5 Other fecal abnormalities; Z86.0101 Personal history of adenomatous and serrated colon polyps; Z12.11 Encounter for screening for malignant neoplasm of colon; K58.2 Mixed irritable bowel syndrome
CPT/HCPCS: 45385; 82962; J7120

== ENCOUNTER 2024-07-28 03:28 | Emergency (ER) | payer MEDICAID, SELFPAY ==
--- OUTSIDE RECORDS SUMMARY | 2024-07-28 03:34 | XMS_ITS | Clinical Summary ---
Author Organization [facility] Address [address] [id number] Care Team Providers Care Supervisor [employer] Name Role Phone Russell Sims APRN Primary Care Provider [phone] Family History Medical History Relation Name Comments Asthma Father Conversions - Other Father Breast c ancer metastasized to bone Heart attack Father Conversions - Other Maternal Grandmother Breast cancer metastasized to bone Conversions - Other Mother Breast c ancer metastasized to bone Relation Name Status Comments Father Maternal Grandmother Mother Social History Tobacco Use Types Packs/Day Years Used Date Smoking Tobacco: Former Comments Unknown Sex and Gender Information Value Date Recorded Sex Assigned at Not on file Legal Sex Female 8:51 PM EDT Gender Identity Not on file Sexual Orientation Not on file Last Filed Vital Signs Vital Sign Reading Time Taken Comments Blood Pressure - - Pulse - - Temperature - - Respiratory Rate - - Oxygen Saturation - - Inhaled Oxygen Concentration - - Weight 97.1 kg (214 lb) 07/28/2016 10:39 AM EDT Height 152.4 cm (5') 07/28/2016 10:39 AM EDT Body Mass Index 41.79 07/28/2016 10:39 AM EDT Plan of Treatment Not on file Care Teams Supervisor [employer] Relationship Specialty Start Date End Date Russell Sims APRN [address] [facility]31 PCP - General 06/21/20
[2024-07-28 03:36] VITALS: BP 203/81; PULSE 69; RESP 14; TEMP 37.2; O2SAT 96; BMI 39.4
--- NOTE | 2024-07-28 03:46 | ECG_ITS ---
APPROVED REPORT Exam: Resting ECG HR:63 bpm ECG Measurements Heart Rate 63 AXES AK 176 P 61 QRSd 89 QRS 0 QT 423 T 1 QTc 431 Conclusion SINUS RHYTHM LOW QRS VOLTAGE IN PRECORDIAL LEADS [QRS DEFLECTION < 1.0 mV IN CHEST LEADS] POSSIBLE ANTERIOR MYOCARDIAL INFARCTION , OF INDETERMINATE AGE [30 ms Q WAVE IN V3/V4, OR R < 0.2 mV IN V4] ABNORMAL ECG UNCONFIRMED REPORT Electronically signed by : NAZIA DE SANTIAGO, 07/30/2024 02:41:02
--- NOTE | 2024-07-28 03:47 | HMH.EDGENADL ---
Discharge Plan Disposition Patient Disposition: Home, Self-Care Prescriptions Prescriptions: No Action Jardiance 25 mg tablet 25 mg PO DAILY glipizide 10 mg tablet extended release 24hr 10 mg PO DIRECTED Patient Comments: TAKE ONE TABLET BY MOUTH EVERY DAY albuterol sulfate [Ventolin HFA] 90 mcg/actuation HFA aerosol inhaler 90 mcg INHALATION DIRECTED Patient Comments: INHALE TWO PUFFS BY MOUTH EVERY 4 HOURS NEEDED rosuvastatin 20 mg tablet 20 mg PO DIRECTED Patient Comments: TAKE ONE TABLET BY MOUTH EVERY DAY Trelegy Ellipta 100-62.5-25 mcg blister with device 1 inh INHALATION DIRECTED Patient Comments: INHALE 1 PUFF BY MOUTH ONCE DAILY Januvia 100 MG tablet 100 mg PO DAILY levothyroxine 175 mcg tablet 150 mcg PO DAILY Rx Instructions: Take 1 tablet by mouth once daily pravastatin 40 mg tablet 40 mg PO DAILY Rx Instructions: TAKE 1 TABLET BY MOUTH AT BEDTIME FOR CHOLESTEROL lisinopril 20 mg tablet 20 mg PO DAILY Rx Instructions: Take 1 tablet by mouth once daily albuterol sulfate 90 mcg/actuation HFA aerosol inhaler 90 mcg inhalation DAILY Rx Instructions: INHALE 1 PUFF BY MOUTH EVERY 4 TO 6 HOURS NEEDED FOR SHORTNESS OF BREATH FOR WHEEZING Referrals Follow up/Referrals: Dennise Hadley APRN [Primary Care Provider, Medical] - See instructions Activity Restrictions/Add. Instructions Additional Instructions/Restrictions: Please follow-up with your primary care provider. Please return to the emergency department if you develop any new or worsening symptoms or become concerned for your health. Clinical Impressions Clinical Impression: Acute hyperglycemia, Hypertension Instructions Patient Instructions: DI for Hyperglycemia -- Adult Print Language Print Language: Lao Discharge ED Provider: Renny Stewart General Adult HPI General Chief complaint: Hyper/Hypoglycemia Stated complaint: high blood sugar, high blood pressure, sob Time Seen by Provider: 07/28/24 03:35 Mode of Arrival: Ambulatory Source of Information: Patient Description of Symptoms (Recalled from ER Triage Doc. by RN): Pt presents with c/o HTN and hyperglycemia that was noticed today. Pt reports to being type 2 DM with somehwat decent control of blood glusoce levels at home. Pt reports associated dizziness and nausea. Pt denies any missed doses of medication that she takes for HTN or diabetes. History of Present Illness HPI narrative: 64-year-old female with history of hypertension and diabetes presents for concern about her blood pressure and blood sugar. She reports that her blood sugar was up in the 300s at home and she felt a little bit dizzy and nauseous. She has been drinking a lot of water and has not eaten anything for a while and her blood sugar started to come down. She also checked her blood pressure at home and it was over 200 systolic and so she came in to get checked out. Patient take medication for both and has not missed any doses. Related Data Home Medications ?Medication ?Instructions ?Recorded ?Confirmed sitagliptin phosphate 100 mg 100 mg PO DAILY Diabetes 05/23/20 05/04/24 tablet (Januvia) albuterol sulfate 90 mcg/actuation 90 mcg inhalation DIRECTED 01/07/24 05/04/24 aerosol inhaler (Ventolin HFA) fluticasone fur. 100 mcg-umeclid 1 inh inhalation DIRECTED 01/07/24 05/04/24 62.5 mcg-vilant 25 mcg inhalat.powder (Trelegy Ellipta) glipizide 10 mg tablet, extended 10 mg PO DIRECTED 01/07/24 05/04/24 release 24 hr rosuvastatin 20 mg tablet 20 mg PO DIRECTED 01/07/24 05/04/24 albuterol sulfate 90 mcg/actuation 90 mcg inhalation DAILY 05/02/24 05/04/24 aerosol inhaler empagliflozin 25 mg tablet 25 mg PO DAILY 05/02/24 05/04/24 (Jardiance) levothyroxine 175 mcg tablet 150 mcg PO DAILY 05/02/24 05/04/24 lisinopril 20 mg tablet 20 mg PO DAILY 05/02/24 05/04/24 pravastatin 40 mg tablet 40 mg PO DAILY 05/02/24 05/04/24 Allergies Allergy/AdvReac Type Severity Reaction Status Date / Time amoxicillin (From Augmentin) Allergy Intermediate Nausea Verified 05/04/24 08:48 clavulanic acid (From Allergy Intermediate Rash Verified 05/04/24 08:48 Augmentin) meloxicam Allergy Intermediate Swelling Verified 05/04/24 08:48 of Lip/Tongue/Throat [facility] Disclaimer: The information contained in this section may have been updated after the patient was seen, as this information can be updated by other users. Medical History (Updated 07/28/24 @ 04:24 by Renny Stewart MD) History of COVID-19 Asthma Skin cancer UTI symptoms History of thyroid disease COPD (chronic obstructive pulmonary disease) Diabetes Surgical History (Updated 05/04/24 @ 09:02 by Nelia Alberto, POOJA) History of removal of ovarian cyst H/O dilation and curettage H/O thyroidectomy Family History (Updated 05/04/24 @ 09:02 by Nelia Alberto, RN) Other Asthma Breast cancer Diabetes Heart attack Hypertension Skin cancer Social History (Updated 05/04/24 @ 09:03 by Nelia Alberto, RN) Smoking Status: Never smoker alcohol intake: never substance use type: denies use current occupational status: retired Travel in the last 8 weeks?: None household members: significant other housing: house current occupation: [employer] current occupational exposures/hazards: Yes caffeine: Yes Have you lived/traveled outside [place] in past 30 days?: No Contact w/someone who lives/traveled outside US past 30 days?: No Exposure to someone with infectious disease in past 14 days?: No Do you have a fever (greater than 100.4 F or 38 C)?: No Have you tested positive for COVID-19?: No Exposed to someone with COVID-19 in past 14 days?: No Do you have a sore throat?: No Do you have a cough?: No Do you have any weakness?: No Do you have any diarrhea?: No Are you experiencing any unusual bleeding?: No Do you have any muscle aches/pain?: No Do you have any abdominal pain?: No Are you experiencing loss of taste or smell?: No Other Medical History Have you received the Flu Vaccine for this season: Yes Have you received the Pneumonia Vaccine: Yes ROS Obtained: Yes All systems reviewed & no additional complaints except as documented Physical Exam General General appearance: alert and in no apparent distress Head Head exam: atraumatic and normocephalic Eye Eye exam: Present normal appearance, PERRL and EOMI ENT ENT exam: Present normal oropharynx and normal external ear exam Neck Neck exam: Present normal inspection and full ROM Chest Chest inspection: Present normal inspection and symmetric chest wall rise; Absent tenderness Respiratory Respiratory exam: Present normal lung sounds bilaterally; Absent respiratory distress Cardiovascular Cardiovascular exam: Present regular rate and normal rhythm Abdominal Exam Abdominal exam: Present soft; Absent distention, tenderness or guarding Extremities Exam Extremities exam: Present normal inspection; Absent edema or joint swelling Back Exam Back exam: Present normal inspection; Absent tenderness Neurological Exam Neurological exam: Present alert and oriented X3; Absent motor sensory deficit Psychiatric Psychiatric exam: Present normal affect and normal mood Skin Skin exam: Present warm, dry and normal color Lymphatic Lymphatic Findings: no adenopathy Medical Decision Making Medical Records Medical records reviewed: Yes I reviewed the patient's medical records. Screening: Per USPSTF and CDC recommendations, given the prevalence of disease in our region, it is our hospital?s policy to screen for HIV and viral Hepatitis for all patients aged 18 and over and those with ongoing risk factors. Atif Inquiry Pt receiving controlled substance: No Atif was queried for this patient: No Vital Signs: 07/28/24 03:36 07/28/24 04:29 Temperature 98.9 F 98.6 F Temperature Source Oral Oral Pulse Rate 68 Pulse Rate [Radial] 69 Respiratory Rate 14 16 Blood Pressure 167/73 H Blood Pressure [Right Arm] 203/81 H Blood Pressure Mean [Right Arm] 121 Blood Pressure Position Sitting Blood Pressure Position [Right Arm] Sitting 02 Sat by Pulse Oximetry 96 Oxygen Delivery Method Room Air Room Air Lab Data Lab results reviewed: Yes I reviewed the patient's lab results. Lab Results 07/28/24 03:43: WBC 7.8, RBC 4.45, Hgb 13.9, Hct 40.9, MCV 91.9, MCH 31.2, MCHC 34.0, RDW 11.9, Plt Count 184, MPV 10.5 H, Neut % (Auto) 47.8, Lymph % (Auto) 41.6, [place] % (Auto) 6.1, Eos % (Auto) 3.3, Baso % (Auto) 0.9, Neut # (Auto) 3.7, Lymph # (Auto) 3.3, [place] # (Auto) 0.5, Eos # (Auto) 0.3, Baso # (Auto) 0.1, Sodium 135 L, Potassium 4.1, Chloride 98, Carbon Dioxide 29, Anion Gap 12.1, BUN 18 H, Creatinine 0.70, Estimated Creat Clear 83, Estimated GFR 85, Est GFR ( Amer) 102, Glucose 216 H, Calcium 10.1, Magnesium 1.9, Total Bilirubin 0.5, AST 24, ALT 23, Alkaline Phosphatase 77, Total Protein 7.8, Albumin 4.2, Globulin 3.6 H, Albumin/Globulin Ratio 1.2 07/28/24 03:53: VBG pH 7.30 L, VBG pCO2 47.3, VBG pO2 34.9, VBG HCO3 22.9 L, VBG Total CO2 24.4, VBG O2 Saturation 62.2, VBG Base Excess -3.5 L, VBG Lactic Acid 1.3 07/28/24 03:43 07/28/24 03:43 Orders (Tests/Meds): ORDERS Category Date Time Status CBC w/Auto Diff [Complete Blood Count Auto Diff] Stat Lab 07/28/24 03:43 Completed CMP [Comprehensive Metabolic Panel] Stat Lab 07/28/24 03:43 Completed Magnesium Stat Lab 07/28/24 03:43 Completed VBG [Venous Blood Gas] Stat RT 07/28/24 03:53 Completed ECG Data Tracing #1: I reviewed this ECG and interpreted as documented below: Sinus rhythm, ventricular rate of 63, low QRS voltage, no concerning ischemic changes. ECG initial impression date: 07/28/24 ECG initial impression time: 03:46 Medical Decision Narrative: 64-year-old female with history of hypertension diabetes presents for her blood sugar and blood pressure. History was obtained via interactive discussion with patient, chart review. On arrival, patient is afebrile, mildly hypertensive with blood pressure in the 160s systolic, moving all extremities spontaneously. Full physical exam performed and significant for no significant physical exam normalities Differential includes but is not limited to HHS, DKA, hypertensive urgency or emergency, hypertension. Workup initiated including basic labs. On re-evaluation, patient continues to report symptomatic improvement. Blood pressure remained stable in the 160s systolic Laboratory workup independently interpreted by me and significant for no notable electrolyte derangement, blood sugar 216, no significant leukocytosis, no evidence of DKA Imaging was considered, but deemed unnecessary due to history and physical exam. Given patient history, exam and workup, patient's presentation most likely represents transient symptoms likely secondary to hyperglycemia and hypertension. No evidence of hypertensive emergency or DKA. Patient discharged stable condition with return precautions. Procedures Risk/Benefits of Procedure(s) Were Explained: Yes Critical Care Critical Care Time Critical Care Time: No
[2024-07-28 03:58] LABS: Lactate Venous 1.3 mmol/L (0.4-2.0); VBG Base Excess -3.5 mmol/L (-2.4-2.3); VBG HCO3 22.9 mmol/L (23-30); VBG Oxygen Saturation 62.2 % (50-70); VBG PCO2 47.3 mmol/L (35-51); VBG PO2 34.9 mmol/L (28-40); VBG Total CO2 24.4 mmol/L (23-27)
[2024-07-28 04:00] LABS: Alanine Aminotransferase 23 U/L (12-78); Albumin Level 4.2 g/dl (3.5-5.0); Albumin/Globulin Ratio 1.2 (1.1-1.8); Alkaline Phosphatase 77 U/L (38-126); Anion Gap 12.1 mEq/L (5-15); Aspartate Amino Transferase 24 U/L (14-36); Bilirubin,Total 0.5 mg/dl (0.2-1.3); Blood Urea Nitrogen 18 mg/dl (7-17); Calcium 10.1 mg/dl (8.4-10.2); Carbon Dioxide 29 mmol/L (22.0-30.0); Chloride 98 mmol/L (98-107); Creatinine Clearance Estimated 83 mL/min (50-200); Estimated Glomerular Filt Rate 85 ml/min (>60); GFR (African American) 102 ML/MIN (>60); Globulin 3.6 g/dL (1.3-3.2); Glucose 216 mg/dl (74-100); Magnesium 1.9 mg/dl (1.6-2.3); Potassium 4.1 mmoL/L (3.5-5.1); Sodium 135 mmol/L (136-145); Total Protein,Serum 7.8 g/dl (6.3-8.2)
[2024-07-28 04:09] LABS: Basophils # 0.1 K/mm3 (0-0.2); Basophils % 0.9 % (0.1-2.0); Eosinophils # 0.3 Kmm3 (0.0-0.4); Eosinophils % 3.3 % (0.1-12.0); Hematocrit 40.9 % (37.0-47.0); Hemoglobin 13.9 g/dL (12.2-16.2); Immature Granulocytes # 0.02 10^3uL; Immature Granulocytes % 0.3 %; Lymphocytes # 3.3 K/mm3 (0.7-4.5); Lymphocytes % 41.6 % (10-50); Mean Corpuscular Hemoglobin 31.2 pg (27.0-31.2); Mean Corpuscular Volume 91.9 fl (81-99); Mean Platelet Volume 10.5 fl (7.4-10.4); Monocytes # 0.5 K/mm3 (0.1-1.0); Monocytes % 6.1 % (1.7-9.3); Neutrophils # 3.7 K/mm3 (1.8-7.8); Neutrophils % 47.8 % (37.0-80.0); Nucleated Red Blood Cells # 0 10^3/uL; Nucleated Red Blood Cells % 0 %; Platelet Count 184 K/mm3 (142-424); Red Blood Count 4.45 M/mm3 (4.20-5.40); Red Cell Distribution Width 11.9 % (11.5-17.5); Red Cell Distribution Width-SD 40.1 fL; White Blood Count 7.8 K/mm3 (4.8-10.8)
[2024-07-28 04:29] VITALS: BP 167/73; PULSE 68; RESP 16; TEMP 37; O2SAT 96
== END 2024-07-28 04:30 | disposition home or self-care (01) ==
PROVIDERS: Emergency Provider Emergency Medicine; PCP Nurse Practitioner Family
DX: R73.9 Hyperglycemia, unspecified (principal); I10 Essential (primary) hypertension
CPT/HCPCS: 80053; 82803; 83735; 85025; 93005; 99284